=== PATIENT | female | born 1950 | race Caucasian/White ===

== ENCOUNTER 2019-09-18 20:34 | Emergency (ER) | payer MEDICAID, MEDICARE, OTHER ==
[~2019-09-18] VITALS: Ht 165.1 cm; Wt 130.7 kg
[~2019-09-18 20:34] MED LIST: ASPI-586 PO; INSU100I14 SQ; INSU100V5 SQ; IPRA4AER IH; LEVO100T7 PO; LISI40TA PO; LOVA10TA PO; RT-ALBUINH IH
[2019-09-18] MEDS ORDERED: INSU100I29 (22:01)
[2019-09-18] MEDS ORDERED: GLIP5TAB13 (22:01)
[2019-09-18] MEDS ORDERED: MONT10TA24 (22:01)
[2019-09-18] MEDS ORDERED: PATI8.4P (22:01)
[2019-09-18] MEDS ORDERED: FURO80TA3 (22:01)
[2019-09-18] MEDS ORDERED: RX-ALBUTEROL INHALER (PROAIR) 8.5 GM IH STA (22:18)
--- NOTE | 2019-09-18 22:28 | ED Cough/URI ---
General Chief Complaint: Cough/Cold/Flu Symptoms Stated Complaint: SOB,CONGESTED Nursing Triage Note: SOB CONGESTION AND SORE THROAT X3 DAYS Sepsis Screen: No Definite Risk History of Present Illness Date Seen by Provider: Sep 18, 2019 Time Seen by Provider: 21:50 Initial Comments 8-year-old female reports cough and congestion over the last 3 days. She has a history of CHF and diabetes. Her blood sugars have been running in the 180s and 90s. She is extremely active today running errands, denies any shortness of air or malaise. She has inhalers at home that she believes are ex pired. She has not tried to use them. Timing/Duration: intermittent Severity/Quality: productive cough (minimal clear to yellow) Prior Episodes/Possible Cause: occasional episodes Associated Symptoms: cough, nasal congestion, wheezing Allergies and Home Medications Allergies Coded Allergies: Sulfa (Sulfonamide Antibiotics) (Verified Allergy, Severe, BLOODY STOOLS, 12/08/15) ciprofloxacin (Verified Allergy, Severe, BLOODY STOOLS, 12/08/15) codeine (Verified Allergy, Severe, HALLUCINATIONS, 12/08/15) Home Medications Albuterol Sulfate 18 Gm Hfa.aer.ad, 1-2 PUFF IH PRN, (Reported) Albuterol/Ipratropium 4 Gm Aero, 2 PUFF IH Q4H, (Reported) Aspirin 81 Mg Tablet.dr, 81 MG PO DAILY, (Reported) Insulin Aspart 300 Units/3 Ml Solution, 300 UNITS SQ AC, (Reported) Insulin Determir 1,000 Units/10 Ml Soln, 74 UNITS SQ HS, (Reported) Levothyroxine Sodium 100 Mcg Tablet, 100 MCG PO DAILY, (Reported) Lisinopril 40 Mg Tablet, 80 MG PO BID, (Reported) Lovastatin 10 Mg Tablet, 10 MG PO HS, (Reported) Patient Home Medication List Home Medication List Reviewed: Yes Review of Systems Review of Systems Constitutional: see HPI, malaise Respiratory: see HPI, phlegm All Other Systems Reviewed Negative Unless Noted: Yes Past Tjfhpgj-Fumamo-Ejlokr Hx Past Med/Social Hx: Reviewed Nursing Past Med/Soc Hx Patient Social History Alcohol Use: Denies Use Recreational Drug Use: No Smoking Status: Never a Smoker Recent Foreign Travel: No Contact w/Someone Who Travel: No Recent Infectious Disease Expo: No Immunizations Up To Date Tetanus Booster (TDap): Unknown PED Vaccines UTD: Yes Date of Pneumonia Vaccine: Sep 12, 2013 Past Medical History Surgeries: Yes (D&C X'S 3) Respiratory: Yes (MILD SLEEP APNEA-CPAP) Asthma, Chronic Bronchitis, Sleep Apnea Cardiac: Yes Neurological: No Reproductive Disorders: Yes (FIBROID TUMORS) Female Reproductive Disorders: Denies Sexually Transmitted Disease: No HIV/AIDS: No Gastrointestinal: No Musculoskeletal: No Endocrine: Yes Loss of Vision: Bilateral Hearing Impairment: Denies Cancer: Yes Skin Psychosocial: No Integumentary: No Blood Disorders: No Adverse Reaction/Blood Tranf: No (HAS HAD BLOOD WITH NO PROBLEM) Physical Exam Vital Signs - First Documented 09/18/19 20:56 Temp 36.9 Pulse 76 Resp 20 B/P (MAP) 156/77 (103) Pulse Ox 97 O2 Delivery Room Air Capillary Refill : Less Than 3 Seconds Height: 5'5.00" Weight: 270lbs. 0.0oz. 122.656628qs; 47.00 BMI Method: General Appearance: WD/WN, no apparent distress HEENT: PERRL/EOMI, normal ENT inspection, TMs normal, pharynx normal (postnasal drainage) Respiratory: chest non-tender, lungs clear, normal breath sounds Cardiovascular: normal peripheral pulses, regular rate, rhythm Gastrointestinal: normal bowel sounds, non tender, soft Neurologic/Psychiatric: no motor/sensory deficits, alert, normal mood/affect, oriented x 3 Skin: normal color, warm/dry; No pallor, No rash Lymphatic: no adenopathy Progress/Results/Core Measures Suspected Sepsis Recent Fever Within 48 Hours: Yes Infection Criteria Present: Suspected New Infection New/Unexplained Altered Menta: No Sepsis Screen: No Definite Risk SIRS Temperature: Pulse: 76 Respiratory Rate: 20 Blood Pressure 156 /77 Mean: 103 Results/Orders Micro Results Microbiology 09/18/19 Influenza Types A,B Antigen (TAMMY) - Final, Complete My Orders Orders - VALERY WAGONER Rx-Albuterol Inhaler (Rx-Proair) (09/18/19 22:18) Vital Signs/I&O 09/18/19 09/18/19 20:56 22:54 Temp 36.9 36.9 Pulse 76 72 Resp 20 18 B/P (MAP) 156/77 (103) 149/75 (103) Pulse Ox 97 97 O2 Delivery Room Air Room Air Capillary Refill : Less Than 3 Seconds Blood Pressure Mean: 103 Diagnostic Imaging Diagonstic Imaging: Xray Plain Films/CT/US/NM/MRI: chest Comments No acute findings. Will be over read by radiology. Departure Impression Primary Impression: Viral upper respiratory infection Disposition: 01 HOME, SELF-CARE Condition: Improved Departure-Patient Inst. Decision time for Depature: 22:20 Referrals: BRODIE RAMIREZ DO (PCP) Primary Care Physician Patient Instructions: Viral Upper Respiratory Infection, Adult (DC) Add. Discharge Instructions: Take Mucinex one tablet twice daily with one glass of water. Alternate between Tylenol 650 mg and ibuprofen 600 mg every 4 hours for pain or fever. Follow-up with your primary care provider if your symptoms are not improving or worsen. Use the pro-air inhaler 2 puffs every 4 hours, waiting 5 minutes in between inhalation. Continue taking all of your normal home medications. Return to emergency department for new, urgent health care needs. All discharge instructions reviewed with patient and/or family. Voiced understanding. VALERY WAGONER Sep 18, 2019 22:28
[2019-09-18 22:54] VITALS: BP 149/75
--- NOTE | 2019-09-19 08:09 | Diagnostic Imaging Report ---
INDICATION: Cough and congestion for 3 days EXAMINATION: 2 view chest 09/18/2019 COMPARISON: None. FINDINGS: Heart is slightly prominent. Pulmonary vasculature appears congested with mild edema suspected. No infiltrates or effusions. No pneumothorax. IMPRESSION: 1. Suspected early pulmonary edema. Dictated by: Dictated on workstation # [id number]
== END 2019-09-18 22:55 | disposition home or self-care (01) ==
LOC: EDUNIT# 20:34 → ER 20:35
DX: J06.9 Acute upper respiratory infection, unspecified (principal); I50.9 Heart failure, unspecified; E11.9 Type 2 diabetes mellitus without complications; J44.9 Chronic obstructive pulmonary disease, unspecified; Z88.2 Allergy status to sulfonamides; Z88.1 Allergy status to other antibiotic agents; Z88.5 Allergy status to narcotic agent; Z79.82 Long term (current) use of aspirin; Z79.4 Long term (current) use of insulin; Z86.018 Personal history of other benign neoplasm; Z85.828 Personal history of other malignant neoplasm of skin
CPT/HCPCS: 71046; 87804; 94640; 94664

== ENCOUNTER 2019-10-20 21:20 | Emergency (ER) | payer MEDICARE, OTHER ==
[~2019-10-20] VITALS: Ht 165.1 cm; Wt 123.8 kg
[~2019-10-20 21:20] MED LIST changes: +FURO80TA3; +GLIP5TAB13; +INSU100I29; +MONT10TA24; +PATI8.4P
[2019-10-20] MEDS ORDERED: RT-ALBUTEROL/IPRATROPIUM 3 ML (DUONEB) VIAL INH ONE (21:45)
--- NOTE | 2019-10-20 22:37 | ED Respiratory ---
General Chief Complaint: Respiratory Problems Stated Complaint: COPD,SOB,COUGH UP DARK MUCOUS Nursing Triage Note: C/O SOB, STARTING 3 DAYS AGO, DENIES FEVER BUT C/O VERY THICK SPUTUM SHE IS UNABLE TO COUGH UP, AND WHEN SHE DOES IT IS BROWNISH YELLOW. Source: patient Exam Limitations: no limitations History of Present Illness Date Seen by Provider: Oct 20, 2019 Time Seen by Provider: 21:45 Initial Comments Here with report of cough over the last few days. Denies fevers. Does have history of COPD and has had significant pneumonia in the past. She lives alone tomorrow but was over here visiting her daughter so decided to check into this emergency department. She is worried because of her history of pneumonia. Initially stated she is having difficulty breathing out of her right lung but later stated it was her left lung. Has been using albuterol MDI but has not used her nebulizer. She is unsure of her nebulizer medicine is still within date. Denies nausea or vomiting. Had similar episode about 4 weeks ago that resolved. Timing/Duration: getting worse, other (3 days) Severity: mild Prior Episodes/Possible Cause: occasional episodes Modifying Factors: Improves With Albuterol Inhaler; Worse With Coughing Associated Symptoms: cough; No fever/chills, No muscle aches; nasal congestion, shortness of breath Allergies and Home Medications Allergies Coded Allergies: Sulfa (Sulfonamide Antibiotics) (Verified Allergy, Severe, BLOODY STOOLS, 10/20/19) ciprofloxacin (Verified Allergy, Severe, BLOODY STOOLS, 10/20/19) codeine (Verified Allergy, Severe, HALLUCINATIONS, 10/20/19) Home Medications Albuterol Sulfate 18 Gm Hfa.aer.ad, 1-2 PUFF IH PRN, (Reported) Albuterol/Ipratropium 4 Gm Aero, 2 PUFF IH Q4H, (Reported) Aspirin 81 Mg Tablet.dr, 81 MG PO DAILY, (Reported) Insulin Aspart 300 Units/3 Ml Solution, 300 UNITS SQ AC, (Reported) Insulin Determir 1,000 Units/10 Ml Soln, 74 UNITS SQ HS, (Reported) Levothyroxine Sodium 100 Mcg Tablet, 100 MCG PO DAILY, (Reported) Lisinopril 40 Mg Tablet, 80 MG PO BID, (Reported) Lovastatin 10 Mg Tablet, 10 MG PO HS, (Reported) Patient Home Medication List Home Medication List Reviewed: Yes Review of Systems Review of Systems Constitutional: see HPI; No chills, No fever Respiratory: cough, short of breath; No wheezing Cardiovascular: No chest pain, No palpitations Gastrointestinal: No abdominal pain, No nausea, No vomiting Musculoskeletal: no symptoms reported Past Lbkqgki-Vlsylq-Vpubjz Hx Past Med/Social Hx: Reviewed Nursing Past Med/Soc Hx Patient Social History Alcohol Use: Denies Use Recreational Drug Use: No Recent Foreign Travel: No Contact w/Someone Who Travel: No Recent Infectious Disease Expo: No Recent Hopitalizations: No Physical Abuse: No Sexual Abuse: No Mistreated: No Fear: No Immunizations Up To Date Tetanus Booster (TDap): Unknown PED Vaccines UTD: Yes Date of Pneumonia Vaccine: Sep 12, 2013 Date of Influenza Vaccine: Jul 13, 2019 Past Medical History Surgeries: Yes (D&C X'S 3) Respiratory: Yes (MILD SLEEP APNEA-CPAP) Asthma, Pneumonia, Chronic Bronchitis, Sleep Apnea Currently Using CPAP: No Currently Using BIPAP: No Cardiac: Yes ("HEART FAILURE") Hypertension Neurological: No : No Reproductive Disorders: Yes (FIBROID TUMORS) Female Reproductive Disorders: Denies 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 Sexually Transmitted Disease: No HIV/AIDS: No Gastrointestinal: No ("I TAKE MEDICINE FOR LIVER DISEASE" UNABLE TO CONFIRM EXACTLY WHAT IS WRONG) Musculoskeletal: No Endocrine: Yes (ORAL MEDS DURING DAY AND LANTUS AT NIGHT) Are Your Blood Sugars Over 250: No HEENT: No Loss of Vision: Bilateral Hearing Impairment: Denies Cancer: Yes Skin Psychosocial: No Integumentary: No Blood Disorders: No Adverse Reaction/Blood Tranf: No (HAS HAD BLOOD WITH NO PROBLEM) Family Medical History Reviewed Nursing Family Hx Physical Exam Vital Signs - First Documented 10/20/19 21:33 Temp 36.9 Pulse 76 Resp 20 B/P (MAP) 177/65 (102) Pulse Ox 97 O2 Delivery Room Air Capillary Refill : Less Than 3 Seconds Height: 5'5.00" Weight: 270lbs. 0.0oz. 122.579655eb; 45.00 BMI Method: General Appearance: WD/WN, no apparent distress HEENT: PERRL/EOMI, TMs normal, pharynx normal, other (bilateral clear rhin orrhea and mild erythema) Neck: full range of motion, supple Respiratory: lungs clear, normal breath sounds Cardiovascular: regular rate, rhythm, no murmur Neurologic/Psychiatric: alert, oriented x 3 Skin: normal color, warm/dry Progress/Results/Core Measures Suspected Sepsis Recent Fever Within 48 Hours: No Infection Criteria Present: None New/Unexplained Altered Menta: No Sepsis Screen: No Definite Risk SIRS Temperature: Pulse: 76 Respiratory Rate: 20 Blood Pressure 177 /65 Mean: 102 Results/Orders Micro Results Microbiology 10/20/19 Influenza Types A,B Antigen (TAMMY) - Final, Complete My Orders Orders - SHARON NICOLE MD Albuterol/Ipra Inhalation Soln (Duoneb I (10/20/19 21:45) Chest Pa/Lat (2 View) (10/20/19 21:44) Svn Small Volume Nebulizer (10/20/19 21:44) Sputum Culture (10/20/19 21:44) Influenza A And B Antigens (10/20/19 21:57) Azithromycin Tablet (Zithromax Tablet) (10/20/19 23:30) Medications Given in ED Current Medications Medications Dose Ordered Sig/Maximino Route Start Time Stop Time Status Last Admin Dose Admin Albuterol/ Ipratropium 3 ml ONCE ONCE INH 10/20/19 21:45 10/20/19 21:46 DC 10/20/19 22:02 3 ML Vital Signs/I&O 10/20/19 10/20/19 21:33 22:05 Temp 36.9 Pulse 76 Resp 20 B/P (MAP) 177/65 (102) Pulse Ox 97 96 O2 Delivery Room Air Room Air Capillary Refill : Less Than 3 Seconds Blood Pressure Mean: 102 Progress Note : Progress Note Seen and evaluated. Desean ayon ordered to see if that will help clear her for cough. Two-view chest x-ray ordered. Vital signs and O2 saturations reassuring. Patient is not requiring oxygen and is 97% on room air. Normal heart rate. 2229: Desean ayon did not make much difference but she is still clear breath sounds bilateral. Chest x-ray pending. Monitor patient. 2330: Workup negative. Overall she is doing fine with still reassuring vital signs. We will go ahead and initiate azithromycin 5 day pack with 500 mg by mouth now continue the rest outpatient. I will give her the name of Dr. Rdz so she has a professional organizer that she can make follow-up appointment with. Discharged home with return precautions. Patient verbalize understanding instructions and agreement with plan. Diagnostic Imaging Diagonstic Imaging: Xray Plain Films/CT/US/NM/MRI: chest Comments No acute findings Reviewed: Reviewed by Me Departure Impression Primary Impression: Acute bronchitis Qualified Codes: J20.9 - Acute bronchitis, unspecified Disposition: 01 HOME, SELF-CARE Condition: Stable Departure-Patient Inst. Decision time for Depature: 23:33 Referrals: SHAHRIAR RDZ THOMAS A MD (PCP) Primary Care Physician Patient Instructions: Acute Bronchitis, Adult (DC) Add. Discharge Instructions: All discharge instructions reviewed with patient and/or family. Voiced understanding. Take medications as directed. Use albuterol nebulizer treatments every 4-6 hours as needed. Drink plenty of fluids. Follow-up with the professional organizer listed or of your choosing. Call his office for appointment. Return for worse pain, fever, vomiting, weakness, breathing problems or other concerns as needed. Scripts Azithromycin (Azithromycin) 250 Mg Tablet 250 MG PO DAILY, #4 TAB 0 Refills Prov: SHARON NICOLE MD 10/20/19 Albuterol Sulfate (Albuterol Sulfate) 2.5 Mg/3 Ml Vial.neb 2.5 MG INH Q4H PRN for WHEEZING, #50 EA 1 Refill Prov: SHARON NICOLE MD 10/20/19 SHARON NICOLE MD Oct 20, 2019 22:37
[2019-10-20] MEDS ORDERED: AZITHROMYCIN 250 MG TAB (ZITHROMAX) PO STA (23:30)
[2019-10-20] MEDS ORDERED: AZIT250T12 PO (23:34)
[2019-10-20] MEDS ORDERED: ALBU2.5V4 INH (23:34)
[2019-10-20 23:41] VITALS: BP 130/62
--- NOTE | 2019-10-21 07:24 | Diagnostic Imaging Report ---
INDICATION: COPD. COMPARISON: 09/18/2019. FINDINGS: The heart size, mediastinal configuration, and pulmonary vascularity are within normal limits. There is no pleural effusion, pneumothorax, or pneumonia. The osseous structures are unremarkable. IMPRESSION: No acute cardiopulmonary abnormality. Dictated by: Dictated on workstation # [id number]
== END 2019-10-20 23:46 | disposition home or self-care (01) ==
LOC: EDUNIT# 21:20 → ER 21:22
DX: J20.9 Acute bronchitis, unspecified (principal); J44.0 Chronic obstructive pulmonary disease with (acute) lower respiratory infection; I10 Essential (primary) hypertension; Z85.828 Personal history of other malignant neoplasm of skin; Z88.2 Allergy status to sulfonamides; Z88.1 Allergy status to other antibiotic agents; Z88.5 Allergy status to narcotic agent; Z79.4 Long term (current) use of insulin; Z79.82 Long term (current) use of aspirin
CPT/HCPCS: 71046; 87070; 87077; 87186; 87205; 87804; 94640

== ENCOUNTER 2022-10-12 13:47 | Emergency (ER) | payer BC, MEDICARE ==
[~2022-10-12] VITALS: Ht 165 cm; Wt 113.0 kg
[~2022-10-12 13:47] MED LIST changes: +ALBU2.5V4 INH; +AZIT250T12 PO; -LISI40TA PO; +LISI40TA9 PO; +MONT-40; -MONT10TA24
[2022-10-12] MEDS ORDERED: RT-ALBUTEROL/IPRATROPIUM 3 ML (DUONEB) VIAL INH ONE (14:30)
[2022-10-12] MEDS ORDERED: methylPREDNISolone 125 MG (Solu-MEDROL) VIAL IVP ONE (14:30)
[2022-10-12 14:33] LABS: BASOPHILS % (AUTO) 1 % (0-10); EOSINOPHILS # (AUTO) 0.1 10^3/uL (0.0-0.3); EOSINOPHILS % (AUTO) 2 % (0-10); HEMATOCRIT 35 % (35-52); HEMOGLOBIN 11.1 g/dL (11.5-16.0); LYMPHOCYTES # (AUTO) 1.3 10^3/uL (1.0-4.0); LYMPHOCYTES % (AUTO) 26 % (12-44); MEAN CORPUSCULAR HEMOGLOBIN 30 pg (25-34); MEAN CORPUSCULAR HGB CONC 31 g/dL (32-36); MEAN CORPUSCULAR VOLUME 94 fL (80-99); MEAN PLATELET VOLUME 10.9 fL (9.0-12.2); MONOCYTES # (AUTO) 0.5 10^3/uL (0.0-1.0); MONOCYTES % (AUTO) 10 % (0-12); NEUTROPHILS # (AUTO) 3.2 10^3/uL (1.8-7.8); NEUTROPHILS % (AUTO) 62 % (42-75); PLATELET COUNT 140 10^3/uL (130-400); WHITE BLOOD COUNT 5.3 10^3/uL (4.3-11.0)
--- NOTE | 2022-10-12 14:35 | ED Respiratory ---
General Chief Complaint: Cough/Cold/Flu Symptoms Stated Complaint: CHEST CONGESTION | DIALYSIS PT Nursing Triage Note: PT STATES CONGESTION/COUGH FOR A FEW DAYS, DIALYSIS STARTED A FEW WEEKS AGO, HAD DIALYSIS YESTERDAY, 99% ON ROOM AIR, NEG COVID TEST TUESDAY, COUGH HAS BEEN GOING THROUGH HER HOUSE, HAD A PRODUCTIVE COUGH AND NOW DRY COUGH, HX OF PNEUMONIA AND ALMOST FROM IT IN 1990 Source: patient, family Exam Limitations: no limitations History of Present Illness Date Seen by Provider: Oct 12, 2022 Time Seen by Provider: 14:05 Initial Comments 71-year-old female was sent here from the [facility] walk-in clinic for concerns of wheezing and shortness of breath when laying down starting last night. Patient reports she has also been coughing up yellow-brownish sputum. Patient states that a viral upper respiratory illness has been going through her family. States she started having sneezing on Tuesday, and then her symptoms developed into wheezing last night when lying down. Patient states she is feels fine when she sits up. She denies fever/chills, chest pain, abdominal pain, nausea/vomiting. She has a history of COPD, asthma, diabetes, HTN, and is on dialysis. She last had hemodialysis yesterday. States she has been using her albuterol and Advair inhaler, but has not used her nebulizer. Denies history of CHF, states she recently had an echo and was not told that it was abnormal. She has 1+ pitting edema in regino lower legs, but she states that swelling is acutally improved. She recently moved to [place] to be closer to dialysis. She is trying to establish a primary care here but has been unsuccessful due to lack of available appointments. She was going to go see her previous primary today, but could not due to lack of transportation. Patient's family member was able to provide a list of medications. Allergies and Home Medications Allergies Coded Allergies: Sulfa (Sulfonamide Antibiotics) (Verified Allergy, Severe, BLOODY STOOLS, 10/20/19) ciprofloxacin (Verified Allergy, Severe, BLOODY STOOLS, 10/20/19) codeine (Verified Allergy, Severe, HALLUCINATIONS, 10/20/19) Patient Home Medication List Home Medication List Reviewed: Yes Albuterol Sulfate (Ventolin Hfa) 18 Gm Hfa.aer.ad, 1-2 PUFF IH PRN, (Reported) Entered as Reported by: TYRA CHING on 12/08/15 1130 Albuterol Sulfate (Albuterol Sulfate) 2.5 Mg/3 Ml Vial.neb, 2.5 MG INH Q4H PRN for WHEEZING Prescribed by: SHARON NICOLE on 10/20/192333 Albuterol/Ipratropium (Combivent Respimat Inhal [place]) 4 Gm Aero, 2 PUFF IH Q4H, (Reported) Entered as Reported by: TYRA CHING on 12/08/15 113 Amoxicillin/Potassium Clav (Amox Tr-K Clv 250-125 mg Tab) 250 Mg-125 Mg Tablet, 1 EACH PO BID Prescribed by: Mary Borrego on 10/12/22 154 Aspirin (Aspir 81) 81 Mg Tablet.dr, 81 MG PO DAILY, (Reported) Entered as Reported by: TYRA CHING on 12/08/15 112 Azithromycin (Azithromycin) 250 Mg Tablet, 250 MG PO DAILY Prescribed by: SHARON NICOLE on 10/20/192333 Doxycycline Hyclate (Doxycycline Hyclate) 100 Mg Tablet, 100 MG PO BID Prescribed by: Mary Borrego on 10/12/22 154 Furosemide (Furosemide) 80 Mg Tablet, (Reported) Entered as Reported by: YUNIOR MAHER on 09/18/192200 Glipizide (Glipizide) 5 Mg Tablet, (Reported) Entered as Reported by: YUNIOR MAHER on 09/18/192200 Insulin Aspart (Novolog Flexpen) 300 Units/3 Ml Solution, 300 UNITS SQ AC, (Reported) Entered as Reported by: TYRA CHING on 12/08/151127 Insulin Detemir (Levemir Flextouch) 100 Unit/1 Ml Insuln.pen, (Reported) Entered as Reported by: YUNIOR MAHER on 09/18/192200 Insulin Determir (Levemir) 1,000 Units/10 Ml Soln, 74 UNITS SQ HS, (Reported) Entered as Reported by: TYRA CHING on 12/08/15 112 Levothyroxine Sodium (Levothyroxine Sodium) 100 Mcg Tablet, 100 MCG PO DAILY, (Reported) Entered as Reported by: TYRA CHING on 12/08/15 1128 Lisinopril (Lisinopril) 40 Mg Tablet, 80 MG PO BID, (Reported) Entered as Reported by: TYRA CHING on 12/08/15 112 Lovastatin (Lovastatin) 10 Mg Tablet, 10 MG PO HS, (Reported) Entered as Reported by: TYRA CHING on 12/08/15 112 Montelukast Sodium (Montelukast Sodium) 10 Mg Tablet, (Reported) Entered as Reported by: YUNIOR MAHER on 09/18/192200 Patiromer Calcium Sorbitex (Veltassa) 8.4 Gm Powd.pack, (Reported) Entered as Reported by: YUNIOR MAHER on 09/18/192200 Prednisone (Prednisone) 50 Mg Tab, 50 MG PO DAILY Prescribed by: Mary Borrego on 10/12/22 1541 Review of Systems Review of Systems Constitutional: see HPI Past Lzuovwt-Hmziqa-Kwhttq Hx Patient Social History Tobacco Use?: No Substance use?: No Alcohol Use?: No Immunizations Up To Date Tetanus Booster (TDap): Unknown PED Vaccines UTD: Yes Past Medical History Surgery/Hospitalization HX: COPD, ASTHMA, DIALYSIS, GALLBLADDER Surgeries: Yes (D&C X'S 3) Respiratory: Yes (MILD SLEEP APNEA-CPAP) Asthma, Pneumonia, Chronic Bronchitis, Sleep Apnea Currently Using CPAP: No Currently Using BIPAP: No Cardiac: Yes ("HEART FAILURE") Hypertension Neurological: No Reproductive Disorders: Yes (FIBROID TUMORS) Female 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 Sexually Transmitted Disease: No HIV/AIDS: No Gastrointestinal: No ("I TAKE MEDICINE FOR LIVER DISEASE" UNABLE TO CONFIRM EXACTLY WHAT IS WRONG) Musculoskeletal: No Endocrine: Yes (ORAL MEDS DURING DAY AND LANTUS AT NIGHT) HEENT: No Loss of Vision: Bilateral Hearing Impairment: Denies Cancer: Yes Skin Psychosocial: No Integumentary: No Blood Disorders: No Adverse Reaction/Blood Tranf: No (HAS HAD BLOOD WITH NO PROBLEM) Physical Exam Vital Signs - First Documented 10/12/22 14:00 Temp 35.6 Pulse 74 Resp 20 B/P (MAP) 179/76 (110) Pulse Ox 99 O2 Delivery Room Air Capillary Refill : Less Than 3 Seconds Height: 5'5.00" Weight: 270lbs. 0.0oz. 122.700158hr; 41.00 BMI Method: General Appearance: WD/WN, no apparent distress Neck: supple, normal inspection Respiratory: lungs clear, normal breath sounds, no respiratory distress, no accessory muscle use Cardiovascular: regular rate, rhythm, no edema, no JVD, no murmur, gallop/S3 Extremities: non-tender, pedal edema (2+) Neurologic/Psychiatric: alert, normal mood/affect, oriented x 3 Skin: normal color, warm/dry Progress/Results/Core Measures Suspected Sepsis SIRS Temperature: Pulse: 74 Respiratory Rate: 20 Laboratory Tests 10/12/22 14:22: White Blood Count 5.3 Blood Pressure 179 /76 Mean: 110 Laboratory Tests 10/12/22 14:22: Creatinine 2.19H, Platelet Count 140, Total Bilirubin 0.4 Results/Orders Lab Results Laboratory Tests Test 10/12/22 14:00 10/12/22 14:22 Range/Units Influenza Type A (RT-PCR) Not Detected Not Detecte Influenza Type B (RT-PCR) Not Detected Not Detecte SARS-CoV-2 RNA (RT-PCR) Not Detected Not Detecte White Blood Count 5.3 4.3-11.0 10^3/uL Red Blood Count 3.75 L 3.80-5.11 10^6/uL Hemoglobin 11.1 L 11.5-16.0 g/dL Hematocrit 35 35-52 % Mean Corpuscular Volume 94 80-99 fL Mean Corpuscular Hemoglobin 30 25-34 pg Mean Corpuscular Hemoglobin Concent 31 L 32-36 g/dL Red Cell Distribution Width 17.8 H 10.0-14.5 % Platelet Count 140 130-400 10^3/uL Mean Platelet Volume 10.9 9.0-12.2 fL Immature Granulocyte % (Auto) 0 % Neutrophils (%) (Auto) 62 42-75 % Lymphocytes (%) (Auto) 26 12-44 % Monocytes (%) (Auto) 10 0-12 % Eosinophils (%) (Auto) 2 0-10 % Basophils (%) (Auto) 1 0-10 % Neutrophils # (Auto) 3.2 1.8-7.8 10^3/uL Lymphocytes # (Auto) 1.3 1.0-4.0 10^3/uL Monocytes # (Auto) 0.5 0.0-1.0 10^3/uL Eosinophils # (Auto) 0.1 0.0-0.3 10^3/uL Basophils # (Auto) 0.0 0.0-0.1 10^3/uL Immature Granulocyte # (Auto) 0.0 0.0-0.1 10^3/uL Sodium Level 135 135-145 MMOL/L Potassium Level 4.5 3.6-5.0 MMOL/L Chloride Level 100 98-107 MMOL/L Carbon Dioxide Level 26 21-32 MMOL/L Anion Gap 9 5-14 MMOL/L Blood Urea Nitrogen 15 7-18 MG/DL Creatinine 2.19 H 0.60-1.30 MG/DL Estimat Glomerular Filtration Rate 24 BUN/Creatinine Ratio 7 Glucose Level 254 H 70-105 MG/DL Calcium Level 9.2 8.5-10.1 MG/DL Corrected Calcium 9.8 8.5-10.1 MG/DL Total Bilirubin 0.4 0.1-1.0 MG/DL Aspartate Amino Transf (AST/SGOT) 22 5-34 U/L Alanine Aminotransferase (ALT/SGPT) 30 0-55 U/L Alkaline Phosphatase 151 H 40-136 U/L B-Type Natriuretic Peptide 195.6 H <100.0 PG/ML Total Protein 8.3 H 6.4-8.2 GM/DL Albumin 3.2 3.2-4.5 GM/DL My Orders Orders - MARY BORREGO APRN Covid 19 Inhouse Test (10/12/22 14:03) Influenza A And B By Pcr (10/12/22 14:03) Cbc With Automated Diff (10/12/22 14:03) Comprehensive Metabolic Panel (10/12/22 14:03) Bnp [place] (10/12/22 14:03) Ekg Tracing (10/12/22 14:03) O2 (10/12/22 14:03) Ed Iv/Invasive Line Start (10/12/22 14:03) Monitor-Rhythm Ecg Trace Only (10/12/22 14:03) Chest 1 View, Ap/Pa Only (10/12/22 14:03) Methylprednisolone Sod Succ (Solu-Medrol (10/12/22 14:30) Albuterol/Ipra Inhalation Soln (Duoneb I (10/12/22 14:30) Svn Small Volume Nebulizer (10/12/22 14:17) Medications Given in ED Vital Signs/I&O 10/12/22 10/12/22 14:00 15:58 Temp 35.6 35.6 Pulse 74 71 Resp 20 20 B/P (MAP) 179/76 (110) 184/83 Pulse Ox 99 99 O2 Delivery Room Air Room Air Capillary Refill : Less Than 3 Seconds Blood Pressure Mean: 110 Progress Note #1: Time: 14:36 Progress Note Patient seen and evaluated, sitting comfortably on bed, no acute distress. Based on exam and symptoms, differential diagnosis includes but is not limited to pneumonia, COPD exacerbation, flu/COVID, CHF. Work-up initiated including CBC, CMP, BNP, chest x-ray, EKG. Solu-Medrol and DuoNeb ordered. EKG shows left bundle branch block. Patient states she did not know that she had a bundle branch block. States she used to see a phlebotomy specialist, but stopped because she was told she did not have any heart issues. No previous EKG on file. Patient was able to lie almost flat during EKG, patient said that she felt fine during this. Progress Note #2: Time: 14:56 Progress Note Chest x-ray reviewed, possible infiltrates noted in lower lobes. We will go ahead and treat for pneumonia. No evidence of pulmonary congestion or fluid overload. Labs reviewed. CBC shows slightly decreased RBCs at 3.75, slightly decreased hemoglobin 11.1. CMP shows creatinine 2.19, GFR 24, glucose 254. Flu and COVID negative. Waiting for result of BNP. Progress Note #3: Time: 15:26 Progress Note BNP 195. Not concern for fluid overload. Will discharge patient with treatment for pneumonia and COPD exacerbation. Curb 65 score 1, low risk. ECG Initial ECG Impression Date: Oct 12, 2022 Initial ECG Impression Time: 14:12 Initial ECG Rate: 68 Initial ECG Rhythm: Normal Sinus Initial ECG Intervals: QRS Initial ECG Intervals Widened QRS due to left bundle branch block Initial ECG Comparisson: No Previous ECG Available Diagnostic Imaging Diagonstic Imaging: Xray Plain Films/CT/US/NM/MRI: chest Comments [facility] [place], [place] NAME: EZ DE LOS SANTOS [facility] REC#: [id number] PT STATUS: REG ER : 1950 PHYSICIAN: MARY BORREGO APRN ADMIT DATE: 10/12/22/ER Draft Date of Exam:10/12/22 CHEST 1 VIEW, AP/PA ONLY CLINICAL INDICATION: Patient with congestion/cough for a few days. Dialysis started a few weeks ago. Patient had dialysis yesterday. EXAM: Portable chest x-ray, upright view. COMPARISON: Chest x-ray dated 10/20/2019. FINDINGS: There is interval placement of a vascular access catheter overlying the right side of the chest with the distal portion overlying the cavoatrial junction region in good position. There are mild airspace opacities involving both lung bases which may represent atelectasis versus subtle infiltrates. Otherwise, the lungs are clear. The pulmonary vasculature is within normal limits. The cardiac silhouette is within normal limits. There are degenerative spurs involving the thoracic spine. IMPRESSION: 1: There is mild bibasilar atelectasis but subtle superimposed infiltrates cannot be completely excluded. 2: There is no evidence of significant pulmonary congestion or fluid overload. Dictated on workstation # [id number] Dict: 10/12/22 1443 Trans: 10/12/22 1449 [id number] Interpreted by: RENE ARVIZU MD Electronically signed by: Departure Impression Primary Impression: Pneumonia Additional Impression: COPD exacerbation Disposition: 01 HOME, SELF-CARE Condition: Stable Departure-Patient Inst. Decision time for Depature: 15:26 Referrals: BETTY SKELTON APRN (PCP) Primary Care Physician [facility] [place] [facility] (Family) Primary Care Physician RICKY MILLIGAN MD Patient Instructions: Exacerbation of COPD (DC), Community-Acquired Pneumonia in Adults Add. Discharge Instructions: Take full course of antibiotics as prescribed, complete even if you begin to feel better. Take prednisone as prescribed. Use your inhalers and nebulizers as needed for trouble breathing. Follow-up with primary care provider, preferably before you finish your antibiotic. You may call the main hospital number at [phone] and asked to establish with the first available primary care provider or nurse practitioner. You may also try [facility] at [phone]. Please also schedule appointment with cardiology at [phone]. Return if you have worsening shortness of breath, chest pain, headache, lightheadedness, fever, or any other new, concerning, or worsening symptoms. All discharge instructions reviewed with patient and/or family. Voiced understanding. Scripts Prednisone (Prednisone) 50 Mg Tab 50 MG PO DAILY for 5 Days, #5 TAB Prov: MARY BORREGO APRN 10/12/22 Doxycycline Hyclate (Doxycycline Hyclate) 100 Mg Tablet 100 MG PO BID for 7 Days, #14 TAB 0 Refills Prov: MARY BORREGO APRN 10/12/22 Amoxicillin/Potassium Clav (Amox Tr-K Clv 250-125 mg Tab) 250 Mg-125 Mg Tablet 1 EACH PO BID for 7 Days, #14 TAB 0 Refills Prov: MARY BORREGO APRN 10/12/22 MARY BORREGO APRN Oct 12, 2022 14:35
[2022-10-12 14:45] LABS: ALBUMIN 3.2 GM/DL (3.2-4.5); POTASSIUM 4.5 MMOL/L (3.6-5.0)
[2022-10-12 14:46] LABS: CALCIUM 9.2 MG/DL (8.5-10.1)
[2022-10-12 14:47] LABS: TOTAL PROTEIN 8.3 GM/DL (6.4-8.2)
[2022-10-12 14:49] LABS: BILIRUBIN,TOTAL 0.4 MG/DL (0.1-1.0)
--- NOTE | 2022-10-12 14:50 | Diagnostic Imaging Report ---
CLINICAL INDICATION: Patient with congestion/cough for a few days. Dialysis started a few weeks ago. Patient had dialysis yesterday. EXAM: Portable chest x-ray, upright view. COMPARISON: Chest x-ray dated 10/20/2019. FINDINGS: There is interval placement of a vascular access catheter overlying the right side of the chest with the distal portion overlying the cavoatrial junction region in good position. There are mild airspace opacities involving both lung bases which may represent atelectasis versus subtle infiltrates. Otherwise, the lungs are clear. The pulmonary vasculature is within normal limits. The cardiac silhouette is within normal limits. There are degenerative spurs involving the thoracic spine. IMPRESSION: 1: There is mild bibasilar atelectasis but subtle superimposed infiltrates cannot be completely excluded. 2: There is no evidence of significant pulmonary congestion or fluid overload. Dictated by: Dictated on workstation # [id number]
[2022-10-12 14:51] LABS: CREATININE SERUM 2.19 MG/DL (0.60-1.30)
[2022-10-12] MEDS ORDERED: DOXY100T2 PO (15:41)
[2022-10-12] MEDS ORDERED: AMOX1TAB PO (15:41)
[2022-10-12] MEDS ORDERED: PRD50T PO (15:41)
[2022-10-12 15:58] VITALS: BP 184/83
== END 2022-10-12 15:58 | disposition home or self-care (01) ==
LOC: EDUNIT# 13:47 → ER 13:52
DX: J18.9 Pneumonia, unspecified organism (principal); J44.1 Chronic obstructive pulmonary disease with (acute) exacerbation; I44.7 Left bundle-branch block, unspecified; G47.30 Sleep apnea, unspecified; Z88.0 Allergy status to penicillin; Z20.822 Contact with and (suspected) exposure to COVID-19; Z99.2 Dependence on renal dialysis; Z99.89 Dependence on other enabling machines and devices
CPT/HCPCS: 36415; 71045; 80053; 83880; 85025; 87636; 93005; 93041

== ENCOUNTER 2022-10-17 16:32 | Emergency (ER) | payer MEDICARE ==
[~2022-10-17] VITALS: Ht 163 cm; Wt 109.0 kg
[~2022-10-17 16:32] MED LIST changes: +AMOX1TAB PO; +DOXY100T2 PO; +PRD50T PO
[2022-10-17 17:23] VITALS: BP 182/84
[2022-10-17] MEDS ORDERED: RT-ALBUTEROL/IPRATROPIUM 3 ML (DUONEB) VIAL INH ONE (18:00)
--- NOTE | 2022-10-17 18:32 | Diagnostic Imaging Report ---
HISTORY: Shortness of breath. COMPARISON: 10/12/2022. TECHNIQUE: Frontal view of the chest. FINDINGS: Lung volumes are mildly large. There is mild cardiomegaly and mild central vascular congestion. No airspace consolidation is seen. There is no pleural effusion or pneumothorax. The right dialysis catheter tip projects over the low SVC. IMPRESSION: Mild cardiomegaly with mild central vascular congestion. Dictated by: Dictated on workstation # [id number]
[2022-10-17] MEDS ORDERED: IPRA3AMP31 IH (19:10)
[2022-10-17] MEDS ORDERED: LORA-877 PO (19:10)
--- NOTE | 2022-10-17 19:11 | ED Respiratory ---
General Chief Complaint: Respiratory Problems Stated Complaint: COUGH/SOA Nursing Triage Note: Patient ambulatory to ER w c/o cough and soa. Patient was just in this ER last or Tuesday. She finished all the medication that was prescribed for suspected pneumonia and felt better. In Tuesday patient was in dialysis and was told by her nurse she was coughing a lot and probably needed to be checked out. Source: patient Exam Limitations: no limitations History of Present Illness Date Seen by Provider: Oct 17, 2022 Time Seen by Provider: 17:35 Initial Comments 71-year-old female presents with Allergies and Home Medications Allergies Coded Allergies: Sulfa (Sulfonamide Antibiotics) (Verified Allergy, Severe, BLOODY STOOLS, 10/20/19) ciprofloxacin (Verified Allergy, Severe, BLOODY STOOLS, 10/20/19) codeine (Verified Allergy, Severe, HALLUCINATIONS, 10/20/19) Patient Home Medication List Albuterol Sulfate (Ventolin Hfa) 18 Gm Hfa.aer.ad, 1-2 PUFF IH PRN, (Reported) Entered as Reported by: TYRA CHING on 12/08/15 1130 Albuterol Sulfate (Albuterol Sulfate) 2.5 Mg/3 Ml Vial.neb, 2.5 MG INH Q4H PRN for WHEEZING Prescribed by: SHARON NICOLE on 10/20/19 2334 Albuterol/Ipratropium (Combivent Respimat Inhal [place]) 4 Gm Aero, 2 PUFF IH Q4H, (Reported) Entered as Reported by: TYRA CHING on 12/08/15 1130 Amoxicillin/Potassium Clav (Amox Tr-K Clv 250-125 mg Tab) 250 Mg-125 Mg Tablet, 1 EACH PO BID Prescribed by: Mary Borrego on 10/12/22 1541 Aspirin (Aspir 81) 81 Mg Tablet.dr, 81 MG PO DAILY, (Reported) Entered as Reported by: TYRA CHING on 12/08/15 1128 Azithromycin (Azithromycin) 250 Mg Tablet, 250 MG PO DAILY Prescribed by: SHARON NICOLE on 10/20/19 2334 Doxycycline Hyclate (Doxycycline Hyclate) 100 Mg Tablet, 100 MG PO BID Prescribed by: Mary Borrego on 1/31/23 1541 Furosemide (Furosemide) 80 Mg Tablet, (Reported) Entered as Reported by: YUNIOR MAHER on 09/18/192200 Glipizide (Glipizide) 5 Mg Tablet, (Reported) Entered as Reported by: YUNIOR MAHER on 09/18/192200 Insulin Aspart (Novolog Flexpen) 300 Units/3 Ml Solution, 300 UNITS SQ AC, (Reported) Entered as Reported by: TYRA CHING on 12/08/151127 Insulin Detemir (Levemir Flextouch) 100 Unit/1 Ml Insuln.pen, (Reported) Entered as Reported by: YUNIOR MAHER on 09/18/192200 Insulin Determir (Levemir) 1,000 Units/10 Ml Soln, 74 UNITS SQ HS, (Reported) Entered as Reported by: TYRA CHING on 12/08/151127 Levothyroxine Sodium (Levothyroxine Sodium) 100 Mcg Tablet, 100 MCG PO DAILY, (Reported) Entered as Reported by: TYRA CHING on 12/08/151127 Lisinopril (Lisinopril) 40 Mg Tablet, 80 MG PO BID, (Reported) Entered as Reported by: TYRA CHING on 12/08/151127 Lovastatin (Lovastatin) 10 Mg Tablet, 10 MG PO HS, (Reported) Entered as Reported by: TYRA CHING on 12/08/151127 Montelukast Sodium (Montelukast Sodium) 10 Mg Tablet, (Reported) Entered as Reported by: YUNIOR MAHER on 09/18/192200 Patiromer Calcium Sorbitex (Veltassa) 8.4 Gm Powd.pack, (Reported) Entered as Reported by: YUNIOR MAHER on 09/18/192200 Prednisone (Prednisone) 50 Mg Tab, 50 MG PO DAILY Prescribed by: Mary Borrego on 10/12/221540 Past Wydxfgb-Nzghyu-Nvmzzx Hx Patient Social History Tobacco Use?: No Substance use?: No Alcohol Use?: No Immunizations Up To Date Tetanus Booster (TDap): Unknown PED Vaccines UTD: Yes 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[employer] Past Medical History Surgery/Hospitalization HX: COPD, ASTHMA, DIALYSIS, GALLBLADDER Surgeries: Yes (D&C X'S 3) Respiratory: Yes (MILD SLEEP APNEA-CPAP) Asthma, Pneumonia, Chronic Bronchitis, Sleep Apnea Currently Using CPAP: No Currently Using BIPAP: No Cardiac: Yes ("HEART FAILURE") Hypertension Neurological: No Reproductive Disorders: Yes (FIBROID TUMORS) 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 Sexually Transmitted Disease: No HIV/AIDS: No Gastrointestinal: No ("I TAKE MEDICINE FOR LIVER DISEASE" UNABLE TO CONFIRM EXACTLY WHAT IS WRONG) Musculoskeletal: No Endocrine: Yes (ORAL MEDS DURING DAY AND LANTUS AT NIGHT) HEENT: No Loss of Vision: Bilateral Hearing Impairment: Denies Cancer: Yes Skin Psychosocial: No Integumentary: No Blood Disorders: No Adverse Reaction/Blood Tranf: No (HAS HAD BLOOD WITH NO PROBLEM) Physical Exam Vital Signs - First Documented 10/17/22 17:23 Temp 36.1 Pulse 74 Resp 12 B/P (MAP) 182/84 (116) Pulse Ox 96 O2 Delivery Room Air Capillary Refill : Less Than 3 Seconds Height: 5'5.00" Weight: 270lbs. 0.0oz. 122.107975qf; 41.00 BMI Method: Progress/Results/Core Measures Suspected Sepsis SIRS Temperature: Pulse: 74 Respiratory Rate: 12 Blood Pressure 182 /84 Mean: 116 Results/Orders Lab Results Laboratory Tests Test 10/17/22 18:05 Range/Units Influenza Type A (RT-PCR) Not Detected Not Detecte Influenza Type B (RT-PCR) Not Detected Not Detecte SARS-CoV-2 RNA (RT-PCR) Not Detected Not Detecte My Orders Orders - MARY BORREGO APRN Chest 1 View, Ap/Pa Only (10/17/22 17:46) Albuterol/Ipra Inhalation Soln (Duoneb I (10/17/22 18:00) Svn Small Volume Nebulizer (10/17/22 17:46) Covid 19 Inhouse Test (10/17/22 18:00) Influenza A And B By Pcr (10/17/22 18:00) Medications Given in ED Current Medications Medications Dose Ordered Sig/Maximino Route Start Time Stop Time Status Last Admin Dose Admin Albuterol/ Ipratropium 3 ml ONCE ONCE INH 10/17/22 18:00 10/17/22 18:01 DC 10/17/22 18:35 3 ML Vital Signs/I&O 10/17/22 17:23 Temp 36.1 Pulse 74 Resp 12 B/P (MAP) 182/84 (116) Pulse Ox 96 O2 Delivery Room Air Capillary Refill : Less Than 3 Seconds Blood Pressure Mean: 116 Departure Impression Primary Impression: Chronic bronchitis Disposition: 01 HOME, SELF-CARE Condition: Stable Departure-Patient Inst. Decision time for Depature: 19:07 Referrals: FELIBERTO CHAMORRO DO (PCP/Family) Primary Care Physician Patient Instructions: Chronic Bronchitis (DC) Add. Discharge Instructions: Use breathing treatments up to 4 times a day as needed. Complete your antibiotic and steroid. Follow-up with your primary care provider. Return for worsening shortness of breath, chest pain, high fevers, or any other new, concerning, or worsening symptoms. All discharge instructions reviewed with patient and/or family. Voiced understanding. Scripts Loratadine/Pseudoephedrine (Claritin-D 24 Hour Tablet) 10 Mg-240 Mg Tab.er.24h 1 EACH PO DAILY, #30 TAB 0 Refills Prov: MARY BORREGO APRN 10/17/22 Ipratropium/Albuterol Sulfate (Iprat-Albut 0.5-3(2.5) mg/3 ml) 0.5 Mg-3 Mg (2.5 Mg Base)/3 Ml Ampul.neb 3 ML IH Q6H PRN for SHORTNESS OF BREATH, #60 EACH 0 Refills Prov: MARY BORREGO APRN 10/17/22 MARY BORREGO APRN Oct 17, 2022 19:11
== END 2022-10-17 19:32 | disposition home or self-care (01) ==
LOC: EDUNIT# 16:32 → ER 16:35
DX: J42 Unspecified chronic bronchitis (principal); Z20.822 Contact with and (suspected) exposure to COVID-19
CPT/HCPCS: 71045; 87636

== ENCOUNTER 2022-12-05 12:50 | Emergency (ER) | payer MEDICARE ==
[~2022-12-05] VITALS: Ht 157 cm; Wt 108.8 kg
[~2022-12-05 12:50] MED LIST changes: +IPRA3AMP31 IH; +LORA-877 PO
--- NOTE | 2022-12-05 13:02 | ED Back Pain ---
General Chief Complaint: Lower Extremity Stated Complaint: BACK PAIN|COVID+ Nursing Triage Note: Patient to ER via [facility] w c/o left leg weakness and left side lower back pain. Pain starts in the left hip and radiates down the left leg. Patient states she tested positive for COVID 2 days ago. Pain in leg started 3 days ago. dialysis patient on eliquis. Source of Information: Patient, EMS Exam Limitations: No Limitations History of Present Illness Date Seen by Provider: Dec 05, 2022 Time Seen by Provider: 12:50 Initial Comments 72-year-old female presents to the emergency department today for mid lumbar pain. She arrives via ambulance and tells me that she has mid low back pain. This is a more longstanding issue for her off-and-on that has been worse over the last 3 days. She was concerned today because she felt like her left leg was heavy. She is still able to walk but felt like she was having to focus on moving her left leg more, describing a feeling of weakness in her left leg. She was diagnosed with COVID 2 days ago. She is chronically on dialysis and has not missed any dialysis sessions. She is on Eliquis. All other systems reviewed and negative except documented per HPI. Voice recognition software was used to help create this chart Allergies and Home Medications Allergies Coded Allergies: Sulfa (Sulfonamide Antibiotics) (Verified Allergy, Severe, BLOODY STOOLS, 10/20/19) ciprofloxacin (Verified Allergy, Severe, BLOODY STOOLS, 10/20/19) codeine (Verified Allergy, Severe, HALLUCINATIONS, 10/20/19) Patient Home Medication List Home Medication List Reviewed: Yes Albuterol Sulfate (Ventolin Hfa) 18 Gm Hfa.aer.ad, 1-2 PUFF IH PRN, (Reported) Entered as Reported by: TYRA CHING on 12/08/15 1130 Albuterol Sulfate (Albuterol Sulfate) 2.5 Mg/3 Ml Vial.neb, 2.5 MG INH Q4H PRN for WHEEZING Prescribed by: SHARON NICOLE on 10/20/19 2334 Albuterol/Ipratropium (Combivent Respimat Inhal [place]) 4 Gm Aero, 2 PUFF IH Q4H, (Reported) Entered as Reported by: TYRA CHING on 12/08/15 1130 Amoxicillin/Potassium Clav (Amox Tr-K Clv 250-125 mg Tab) 250 Mg-125 Mg Tablet, 1 EACH PO BID Prescribed by: Mary Bedoya on 10/12/22 154 Aspirin (Aspir 81) 81 Mg Tablet.dr, 81 MG PO DAILY, (Reported) Entered as Reported by: TYRA CHING on 12/08/15 112 Azithromycin (Azithromycin) 250 Mg Tablet, 250 MG PO DAILY Prescribed by: SHARON NICOLE on 10/20/19 2334 Doxycycline Hyclate (Doxycycline Hyclate) 100 Mg Tablet, 100 MG PO BID Prescribed by: Mary Bedoya on 10/12/22 154 Furosemide (Furosemide) 80 Mg Tablet, (Reported) Entered as Reported by: YUNIOR MAHER on 09/18/192200 Glipizide (Glipizide) 5 Mg Tablet, (Reported) Entered as Reported by: YUNIOR MAHER on 09/18/192200 Insulin Aspart (Novolog Flexpen) 300 Units/3 Ml Solution, 300 UNITS SQ AC, (Re ported) Entered as Reported by: TYRA CHING on 12/08/15 112 Insulin Detemir (Levemir Flextouch) 100 Unit/1 Ml Insuln.pen, (Reported) Entered as Reported by: YUNIOR MAHER on 09/18/192200 Insulin Determir (Levemir) 1,000 Units/10 Ml Soln, 74 UNITS SQ HS, (Reported) Entered as Reported by: TYRA CHING on 12/08/15 112 Ipratropium/Albuterol Sulfate (Iprat-Albut 0.5-3(2.5) mg/3 ml) 0.5 Mg-3 Mg (2.5 Mg Base)/3 Ml Ampul.neb, 3 ML IH Q6H PRN for SHORTNESS OF BREATH Prescribed by: Mary Bedoya on 10/17/22 191 Levothyroxine Sodium (Levothyroxine Sodium) 100 Mcg Tablet, 100 MCG PO DAILY, (Reported) Entered as Reported by: TYRA CHING on 12/08/15 112 Lisinopril (Lisinopril) 40 Mg Tablet, 80 MG PO BID, (Reported) Entered as Reported by: TYRA CHING on 12/08/15 1128 Loratadine/Pseudoephedrine (Claritin-D 24 Hour Tablet) 10 Mg-240 Mg Tab.er.24h, 1 EACH PO DAILY Prescribed by: Mary Bedoya on 10/17/22 191 Lovastatin (Lovastatin) 10 Mg Tablet, 10 MG PO HS, (Reported) Entered as Reported by: TYRA CHING on 12/08/15 112 Montelukast Sodium (Montelukast Sodium) 10 Mg Tablet, (Reported) Entered as Reported by: YUNIOR MAHER on 09/18/192200 Patiromer Calcium Sorbitex (Veltassa) 8.4 Gm Powd.pack, (Reported) Entered as Reported by: YUNIOR MAHER on 09/18/192200 Prednisone (Prednisone) 50 Mg Tab, 50 MG PO DAILY Prescribed by: Mary Bedoya on 10/12/22 1541 Review of Systems Constitutional: no symptoms reported Past Mnbgnbi-Ehybaf-Jdlnnr Hx Patient Social History Tobacco Use?: No Use of E-Cig and/or Vaping dev: No Substance use?: No Alcohol Use?: No Immunizations Up To Date Tetanus Booster (TDap): Unknown PED Vaccines UTD: Yes Past Medical History Surgery/Hospitalization HX: COPD, ASTHMA, DIALYSIS, GALLBLADDER Surgeries: Yes (D&C X'S 3) Respiratory: Yes (MILD SLEEP APNEA-CPAP) Asthma, Pneumonia, Chronic Bronchitis, Sleep Apnea Currently Using CPAP: No Currently Using BIPAP: No Cardiac: Yes ("HEART FAILURE") Hypertension Neurological: No Reproductive Disorders: Yes (FIBROID TUMORS) Female Reproductive Disorders: Denies [employer]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 Sexually Transmitted Disease: No HIV/AIDS: No Gastrointestinal: No ("I TAKE MEDICINE FOR LIVER DISEASE" UNABLE TO CONFIRM EXACTLY WHAT IS WRONG) Musculoskeletal: No Endocrine: Yes (ORAL MEDS DURING DAY AND LANTUS AT NIGHT) HEENT: No Loss of Vision: Bilateral Hearing Impairment: Denies Cancer: Yes Skin Psychosocial: No Integumentary: No Blood Disorders: No Adverse Reaction/Blood Tranf: No (HAS HAD BLOOD WITH NO PROBLEM) Family Medical History Reviewed Nursing Family Hx No Pertinent Family Hx Physical Exam Vital Signs Vital Signs - First Documented 12/05/22 12:55 Pulse 65 Resp 18 B/P (MAP) 193/82 (119) Pulse Ox 96 O2 Delivery Room Air Capillary Refill : Less Than 3 Seconds Height, Weight, BMI Height: 5'5.00" Weight: 270lbs. 0.0oz. 122.605752iw; 44.00 BMI Method: General Appearance: No Apparent Distress, WD/WN HEENT: Normal ENT Inspection, Pharynx Normal Neck: Full Range of Motion, Non Tender, Supple Cardiovascular: Regular Rate, Rhythm, No Murmur Respiratory: Chest Non Tender, Lungs Clear, Normal Breath Sounds, No Respiratory Distress Gastrointestinal: Non Tender, Soft Back: No CVA Tenderness, Other (Tenderness palpation midline lumbar spine near L4. No step-off deformity or skin changes.) Extremity: Normal Capillary Refill, Normal Range of Motion, Non Tender, No Calf Tenderness, Other (Normal strength bilateral lower extremities. 3+ pitting edema bilateral lower extremities. Neurovascular motor and sensory intact.) Neurologic/Psychiatric: Alert, Oriented x3 Skin: Normal Color, Warm/Dry Progress/Results/Core Measures Results/Orders My Orders Orders - KINGSTON HAYES DO Ct Lumbar Spine Wo (12/05/22 12:59) Vital Signs/I&O 12/05/22 12:55 Pulse 65 Resp 18 B/P (MAP) 193/82 (119) Pulse Ox 96 O2 Delivery Room Air Blood Pressure Mean: 119 Departure Communication (Admissions) Patient is hemodynamically stable. She has some subjective weakness of her left lower extremity with there is no appreciable weakness on exam today. She is neurovascular motor and sensory intact. She does have spinal stenosis on CT scan. With that we will go ahead and provide pain control and refer her onto her neurosurgeon. She has no loss of bowel or bladder control or saddle anesthesia. She is discharged home in stable condition with supportive care. Impression Primary Impression: Spinal stenosis at L4-L5 level Disposition: 01 HOME, SELF-CARE Condition: Stable Departure-Patient Inst. Referrals: FELIBERTO CHAMORRO DO (PCP/Family) Primary Care Physician NATALIA ENNIS DO Patient Instructions: Spinal Stenosis (DC) Add. Discharge Instructions: Pain medication as needed as prescribed. You will need to follow-up with a neurosurgeon by calling to schedule an appointment. 1 has been recommended to you that you are certainly welcome to research and choose whomever. Return to the emergency department immediately if you lose control of your bowels, bladder. All discharge instructions reviewed with patient and/or family. Voiced understanding. Scripts Hydrocodone/Acetaminophen (Hydrocodone-Acetamin 5-325 mg) 5 Mg-325 Mg Tablet 1 TAB PO Q4H PRN for PAIN-MODERATE (5-7) for 3 Days, #12 TAB Prov: KINGSTON HAYES DO 12/05/22 KINGSTON HAYES DO Dec 05, 2022 13:02
--- NOTE | 2022-12-05 13:40 | Diagnostic Imaging Report ---
PROCEDURE: CT lumbar spine without contrast. TECHNIQUE: Multiple contiguous axial images were obtained through the lumbar spine without the use of intravenous contrast. Sagittal and coronal reformations were then performed. Auto Exposure Controls were utilized during the CT exam to meet ALARA standards for radiation dose reduction. INDICATION: Lumbar pain with leg weakness. COMPARISON: None available. FINDINGS: There is degenerative straightening of the lumbar spine. No spondylolisthesis. No fracture or concerning focal osseous lesion. Multilevel degenerative disc disease is present. At L4-L5, there is likely moderate to severe spinal canal stenosis due to disc bulging and facet hypertrophy. No concerning abnormality of the retroperitoneum. IMPRESSION: 1. No acute osseous abnormality lumbar spine. 2. Moderate to severe spinal canal stenosis at L4-L5 due to degenerative disc disease and facet osteoarthritis. Dictated by: Dictated on workstation # [id number]
[2022-12-05] MEDS ORDERED: ACHD5005 PO (13:50)
[2022-12-05 14:20] VITALS: BP 194/95
== END 2022-12-05 14:20 | disposition home or self-care (01) ==
LOC: EDUNIT# 12:50 → ER 12:51
DX: M48.061 Spinal stenosis, lumbar region without neurogenic claudication (principal); G47.30 Sleep apnea, unspecified; Z86.16 Personal history of COVID-19; Z88.5 Allergy status to narcotic agent; Z79.01 Long term (current) use of anticoagulants; Z99.2 Dependence on renal dialysis; Z99.89 Dependence on other enabling machines and devices
CPT/HCPCS: 72131

== ENCOUNTER 2023-05-18 16:27 | Emergency (ER) | payer MEDICARE ==
[~2023-05-18] VITALS: Ht 157 cm; Wt 97.5 kg
[~2023-05-18 16:27] MED LIST changes: +ACHD5005 PO; -INSU100I29; +INSU100I30
--- NOTE | 2023-05-18 16:53 | ED Respiratory ---
General Chief Complaint: Respiratory Problems Stated Complaint: SOA - COUGH- CONGESTION Nursing Triage Note: PT TO RM 10 WITH C/O SOB, COUGH X3 DAYS Source: patient Exam Limitations: no limitations (MALLIKA DAVILA) History of Present Illness Date Seen by Provider: May 18, 2023 Time Seen by Provider: 16:47 Initial Comments 72 yo F with h/o COPD, asthma, PNA, CKD IV, and IDDM presents to the ED with c/o new onset fever, SOA, and cough that started 3 days ago. Pt states that cough was initially producing mucus but is now dry and SOA is present at rest and with exertion. Pt has been doing at home breathing treatments since onset with no relief, did not do breathing treatment today and instead came to ED. O2 sat after ambulation to ED room was 88% on RA. Pt was then placed on 2L O2 and O2 sats improved to 97% at rest. Pt does not wear O2 at home. Pt states that she had fever but says that temp never was above 100F at home. Pt denies recent sick contacts. Pt received dialysis earlier today. Denies nausea, vomiting, CP, diarrhea, and decreased appetite. Severity: mild Prior Episodes/Possible Cause: smoke exposure (, daughter, and son-in- law) Associated Symptoms: No chest pain/soreness; cough, fever/chills; No wheezing (MALLIKA DAVILA) Allergies and Home Medications Allergies Coded Allergies: Sulfa (Sulfonamide Antibiotics) (Verified Allergy, Severe, BLOODY STOOLS, 10/20/19) ciprofloxacin (Verified Allergy, Severe, BLOODY STOOLS, 10/20/19) codeine (Verified Allergy, Severe, HALLUCINATIONS, 10/20/19) Patient Home Medication List Home Medication List Reviewed: Yes (MALLIKA DAVILA) Albuterol Sulfate (Ventolin Hfa) 18 Gm Hfa.aer.ad, 1-2 PUFF IH PRN, (Reported) Entered as Reported by: TYRA CHING on 12/08/15 1130 Albuterol Sulfate (Albuterol Sulfate) 2.5 Mg/3 Ml Vial.neb, 2.5 MG INH Q4H PRN for WHEEZING Prescribed by: SHARON NICOLE on 10/20/19 2334 Albuterol/Ipratropium (Combivent Respimat Inhal [place]) 4 Gm Aero, 2 PUFF IH Q4H, (Reported) Entered as Reported by: TYRA CHING on 12/08/15 1130 Amoxicillin/Potassium Clav (Amox Tr-K Clv 250-125 mg Tab) 250 Mg-125 Mg Tablet, 1 EACH PO BID Prescribed by: Mary Bedoya on 10/12/22 1541 Aspirin (Aspir 81) 81 Mg Tablet.dr, 81 MG PO DAILY, (Reported) Entered as Reported by: TYRA CHING on 12/08/15 1128 Azithromycin (Azithromycin) 250 Mg Tablet, 250 MG PO DAILY Prescribed by: SHARON NICOLE on 10/20/19 2334 Doxycycline Hyclate (Doxycycline Hyclate) 100 Mg Tablet, 100 MG PO BID Prescribed by: Mary Bedoya on 10/12/22 1541 Furosemide (Furosemide) 80 Mg Tablet, (Reported) Entered as Reported by: YUNIOR MAHER on 09/18/192200 Glipizide (Glipizide) 5 Mg Tablet, (Reported) Entered as Reported by: YUNIOR MAHER on 09/18/192200 Hydrocodone/Acetaminophen (Hydrocodone-Acetamin 5-325 mg) 5 Mg-325 Mg Tablet, 1 TAB PO Q4H PRN for PAIN-MODERATE (5-7) Prescribed by: KINGSTON HAYES MD on 12/05/22 1350 Insulin Aspart (Novolog Flexpen) 300 Units/3 Ml Solution, 300 UNITS SQ AC, (Reported) Entered as Reported by: TYRA CHING on 12/08/15 1128 Insulin Detemir (Levemir Flextouch) 100 Unit/1 Ml Insuln.pen, (Reported) Entered as Reported by: YUNIOR MAHER on 09/18/192200 Insulin Determir (Levemir) 1,000 Units/10 Ml Soln, 74 UNITS SQ HS, (Reported) Entered as Reported by: TYRA CHING on 12/08/15 112 Ipratropium/Albuterol Sulfate (Iprat-Albut 0.5-3(2.5) mg/3 ml) 0.5 Mg-3 Mg (2.5 Mg Base)/3 Ml Ampul.neb, 3 ML IH Q6H PRN for SHORTNESS OF BREATH Prescribed by: Mary Bedoya on 10/17/221909 Levothyroxine Sodium (Levothyroxine Sodium) 100 Mcg Tablet, 100 MCG PO DAILY, (Reported) Entered as Reported by: TYRA CHING on 12/08/151127 Lisinopril (Lisinopril) 40 Mg Tablet, 80 MG PO BID, (Reported) Entered as Reported by: TYRA CHING on 12/08/151127 Loratadine/Pseudoephedrine (Claritin-D 24 Hour Tablet) 10 Mg-240 Mg Tab.er.24h, 1 EACH PO DAILY Prescribed by: Mary Bedoya on 10/17/221910 Lovastatin (Lovastatin) 10 Mg Tablet, 10 MG PO HS, (Reported) Entered as Reported by: TYRA CHING on 12/08/151127 Montelukast Sodium (Montelukast Sodium) 10 Mg Tablet, (Reported) Entered as Reported by: YUNIOR MAHER on 09/18/192200 Patiromer Calcium Sorbitex (Veltassa) 8.4 Gm Powd.pack, (Reported) Entered as Reported by: YUNIOR MAHER on 09/18/192200 Prednisone (Prednisone) 50 Mg Tab, 50 MG PO DAILY Prescribed by: Mary Bedoya on 10/12/22 154 Review of Systems Review of Systems Constitutional: No chills; fever (subjective) EENTM: no symptoms reported Respiratory: cough, dyspnea on exertion, short of breath; No wheezing Cardiovascular: no symptoms reported Gastrointestinal: no symptoms reported Genitourinary: no symptoms reported Musculoskeletal: no symptoms reported Skin: no symptoms reported Psychiatric/Neurological: No Symptoms Reported Hematologic/Lymphatic: No Symptoms Reported Immunological/Allergic: no symptoms reported (MALLIKA DAVILA) All Other Systems Reviewed Negative Unless Noted: Yes (MALLIKA DAVILA) Past Zyfowxw-Srboaj-Twatrs Hx Patient Social History Tobacco Use?: No Substance use?: No Alcohol Use?: No (MALLIKA DAVILA) Immunizations Up To Date Tetanus Booster (TDap): Unknown PED Vaccines UTD: Yes First/Initial COVID19 Vaccinat: unknown Second COVID19 Vaccination Jorge: unknown Third COVID19 Vaccination Date: unknown (MALLIKA DAVILA) Past Medical History Surgery/Hospitalization HX: COPD, ASTHMA, DIALYSIS, GALLBLADDER Surgeries: Yes (D&C X'S 3) Appendectomy, Gallbladder Respiratory: Yes (MILD SLEEP APNEA-CPAP) Asthma, Pneumonia, Chronic Bronchitis, Sleep Apnea, COPD Currently Using CPAP: No Currently Using BIPAP: No Cardiac: Yes Chronic Edema/Swelling, Hypertension Neurological: No Reproductive Disorders: Yes (FIBROID TUMORS) 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 Sexually Transmitted Disease: No HIV/AIDS: No Gastrointestinal: No ("I TAKE MEDICINE FOR LIVER DISEASE" UNABLE TO CONFIRM EXACTLY WHAT IS WRONG) Musculoskeletal: No Endocrine: Yes (ORAL MEDS DURING DAY AND LANTUS AT NIGHT) Diabetes, Non-Insulin dep HEENT: No Loss of Vision: Bilateral Hearing Impairment: Denies Cancer: Yes Skin Psychosocial: No Integumentary: No Blood Disorders: No Adverse Reaction/Blood Tranf: No (HAS HAD BLOOD WITH NO PROBLEM) (MALLIKA DAVILA) Family Medical History No Pertinent Family Hx (MALLIKA DAVILA) Physical Exam Vital Signs - First Documented 05/18/23 16:31 Temp 37.1 Pulse 85 Resp 22 B/P (MAP) 165/74 (104) Pulse Ox 93 O2 Delivery Nasal Cannula (TIARA MIGUEL MD) Capillary Refill : (MALLIKA DAVILA) Height: 5'5.00" Weight: 270lbs. 0.0oz. 122.022555wh; 39.00 BMI Method: General Appearance: WD/WN, no apparent distress HEENT: PERRL/EOMI Respiratory: lungs clear, normal breath sounds, no respiratory distress, no accessory muscle use Cardiovascular: regular rate, rhythm, systolic murmur, other (port R chest wall) Gastrointestinal: non tender, soft Extremities: no calf tenderness, pedal edema (b/l pitting edema-chronic), other (Dialysis fistula R arm ) Neurologic/Psychiatric: alert, normal mood/affect, oriented x 3 Skin: normal color, warm/dry Lymphatic: no adenopathy (MALLIKA DAVILA) Progress/Results/Core Measures Suspected Sepsis SIRS Temperature: Pulse: 85 Respiratory Rate: 22 Blood Pressure 165 /74 Mean: 104 (MALLIKA DAVILA) Results/Orders Lab Results Laboratory Tests Test 05/18/23 16:33 Range/Units Influenza Type A (RT-PCR) Not Detected Not Detecte Influenza Type B (RT-PCR) Not Detected Not Detecte SARS-CoV-2 RNA (RT-PCR) Not Detected Not Detecte (TIARA MIGUEL MD) My Orders Orders - TIARA MIGUEL MD Covid 19 Inhouse Test (05/18/23 17:03) Influenza A And B By Pcr (05/18/23 17:03) Chest 1 View, Ap/Pa Only (05/18/23 17:05) Ipratropium/Albuterol Inh Soln (Ipratrop (05/18/23 18:15) Svn Small Volume Nebulizer (05/18/23 18:01) (TIARA MIGUEL MD) Medications Given in ED Current Medications Medications Dose Ordered Sig/Maximino Route Start Time Stop Time Status Last Admin Dose Admin Albuterol/ Ipratropium 3 ml ONCE ONCE INH 05/18/23 18:15 05/18/23 18:16 05/18/23 18:05 3 ML (TIARA MIGUEL MD) Vital Signs/I&O 05/18/23 05/18/23 16:31 16:43 Temp 37.1 Pulse 85 Resp 22 B/P (MAP) 165/74 (104) Pulse Ox 93 O2 Delivery Nasal Cannula Room Air (TIARA MIGUEL MD) Vital Signs/I&O Capillary Refill : (MALLIKA DAVILA) Blood Pressure Mean: 104 Departure Impression Primary Impression: Viral syndrome Disposition: 01 HOME, SELF-CARE Condition: Improved Departure-Patient Inst. Decision time for Depature: 18:15 (TIARA MIGUEL MD) Referrals: FELIBERTO CHAMORRO DO (PCP/Family) Primary Care Physician Patient Instructions: Viral Syndrome (DC) Add. Discharge Instructions: Use your breathing treatments every 4-6 hours over the next couple of days. Continue your medications as prescribed. You can take hjpo-eak-bulneto Robitussin/Mucinex for your cough. This is safe with your kidney disease. Try and avoid any secondhand smoke exposure. If you develop a fever, worsening cough, chest pain or any other emergent, concerning symptoms please return to the emergency department for reevaluation Copy Copies To 1: FELIBERTO CHAMORRO TAYLOR May 18, 2023 16:53 TIARA MIGUEL MD May 18, 2023 18:17
--- NOTE | 2023-05-18 17:35 | Diagnostic Imaging Report ---
EXAMINATION: Chest 1 view HISTORY: Shortness of breath. COMPARISON: 10/17/2022. FINDINGS: Heart size and pulmonary vasculature are stable. There are patchy interstitial opacities within the ana-cc-rygwn lungs. Right-sided catheter is unchanged. There may be trace left pleural effusion. No pneumothorax. The osseous structures are intact. IMPRESSION: 1. Patchy interstitial opacities within the vhn-kt-okayh lungs with trace left pleural effusion. Findings are not significantly changed from 10/17/2022 and may relate to background chronic lung disease versus atelectasis, edema, or pneumonia. Dictated by: Dictated on workstation # [id number]
[2023-05-18] MEDS ORDERED: RT-Ipratropium/Albuterol NEB 3 ML VIAL INH ONE (18:15)
[2023-05-18 18:47] VITALS: BP 167/66
== END 2023-05-18 18:47 | disposition home or self-care (01) ==
LOC: EDUNIT# 16:27 → ER 16:29
DX: B34.9 Viral infection, unspecified (principal); R50.9 Fever, unspecified; R06.02 Shortness of breath; R05.9 Cough, unspecified; G47.30 Sleep apnea, unspecified; E11.22 Type 2 diabetes mellitus with diabetic chronic kidney disease; N18.9 Chronic kidney disease, unspecified; Z99.2 Dependence on renal dialysis; Z99.89 Dependence on other enabling machines and devices; Z20.822 Contact with and (suspected) exposure to COVID-19
CPT/HCPCS: 71045; 87636

== ENCOUNTER 2023-06-01 14:31 | Emergency (ER) | payer MEDICARE ==
--- NOTE | 2023-06-01 15:10 | ED Cough/URI ---
General Chief Complaint: Cough/Cold/Flu Symptoms Stated Complaint: CONGESTION | BILAT Source: patient Exam Limitations: no limitations (PASQUALE CARTWRIGHT) History of Present Illness Date Seen by Provider: Jun 01, 2023 Time Seen by Provider: 15:08 Initial Comments Patient is a 72-year-old female with a history of dialysis, diabetes who presents ED with cough. Patient states symptoms started around 10 days ago. Had some body aches and chills. Tested negative for COVID influenza. Patient states the coughing has gotten worse over the past few days. Some mild shortness of breath with a cough without any specific chest pain. History of pneumonia and states this feels very similar. Last week she was put on azithromycin with near improvement but then her coughing increased. She denies of any leg swelling. She does do dialysis every Tuesday and Tuesday. Did do dialysis today. She denies of any nausea, vomiting, diarrhea, headache, dizziness, fever, sore throat or ear pain. No recent travels. Vital signs stable. (PASQUALE CARTWRIGHT) Allergies and Home Medications Allergies Coded Allergies: Sulfa (Sulfonamide Antibiotics) (Verified Allergy, Severe, BLOODY STOOLS, 10/20/19) ciprofloxacin (Verified Allergy, Severe, BLOODY STOOLS, 10/20/19) codeine (Verified Allergy, Severe, HALLUCINATIONS, 10/20/19) Patient Home Medication List Home Medication List Reviewed: Yes (PASQUALE CARTWRIGHT) Albuterol Sulfate (Ventolin Hfa) 18 Gm Hfa.aer.ad, 1-2 PUFF IH PRN, (Reported) Entered as Reported by: TYRA CHING on 12/08/15 1130 Albuterol Sulfate (Albuterol Sulfate) 2.5 Mg/3 Ml Vial.neb, 2.5 MG INH Q4H PRN for WHEEZING Prescribed by: SHARON NICOLE on 10/20/19 2334 Albuterol/Ipratropium (Combivent Respimat Inhal Printer) 4 Gm Aero, 2 PUFF IH Q4H, (Reported) Entered as Reported by: TYRA CHING on 12/08/15 1130 Amoxicillin/Potassium Clav (Amox Tr-K Clv 250-125 mg Tab) 250 Mg-125 Mg Tablet, 1 EACH PO BID Prescribed by: Mary Bedoya on 10/12/22 1541 Aspirin (Aspir 81) 81 Mg Tablet.dr, 81 MG PO DAILY, (Reported) Entered as Reported by: TYRA CHING on 12/08/15 112 Azithromycin (Azithromycin) 250 Mg Tablet, 250 MG PO DAILY Prescribed by: SHARON NICOLE on 10/20/19 2334 Benzonatate (Tessalon Perles) 100 Mg Capsule, 200 MG PO TID Prescribed by: JESSICA RODRIGUEZ on 06/01/23 1610 Doxycycline Hyclate (Doxycycline Hyclate) 100 Mg Tablet, 100 MG PO BID Prescribed by: Mary Bedoya on 10/12/22 154 Doxycycline Monohydrate (Doxycycline Monohydrate) 100 Mg Tablet, 100 MG PO BID Prescribed by: JESSICA RODRIGUEZ on 06/01/23 1610 Furosemide (Furosemide) 80 Mg Tablet, (Reported) Entered as Reported by: YUNIOR MAHER on 09/18/192200 Glipizide (Glipizide) 5 Mg Tablet, (Reported) Entered as Reported by: YUNIOR MAHER on 09/18/192200 Hydrocodone/Acetaminophen (Hydrocodone-Acetamin 5-325 mg) 5 Mg-325 Mg Tablet, 1 TAB PO Q4H PRN for PAIN-MODERATE (5-7) Prescribed by: KINGSTON HAYES MD on 12/05/22 1350 Insulin Aspart (Novolog Flexpen) 300 Units/3 Ml Solution, 300 UNITS SQ AC, (Reported) Entered as Reported by: TYRA CHING on 12/08/15 112 Insulin Detemir (Levemir Flextouch) 100 Unit/1 Ml Insuln.pen, (Reported) Entered as Reported by: YUNIOR AMHER on 09/18/192200 Insulin Determir (Levemir) 1,000 Units/10 Ml Soln, 74 UNITS SQ HS, (Reported) Entered as Reported by: TYRA CHING on 12/08/151127 Ipratropium/Albuterol Sulfate (Iprat-Albut 0.5-3(2.5) mg/3 ml) 0.5 Mg-3 Mg (2.5 Mg Base)/3 Ml Ampul.neb, 3 ML IH Q6H PRN for SHORTNESS OF BREATH Prescribed by: Mary Bedoya on 10/17/221909 Levothyroxine Sodium (Levothyroxine Sodium) 100 Mcg Tablet, 100 MCG PO DAILY, (Reported) Entered as Reported by: TYRA CHING on 12/08/15 112 Lisinopril (Lisinopril) 40 Mg Tablet, 80 MG PO BID, (Reported) Entered as Reported by: TYRA CHING on 12/08/15 112 Loratadine/Pseudoephedrine (Claritin-D 24 Hour Tablet) 10 Mg-240 Mg Tab.er.24h, 1 EACH PO DAILY Prescribed by: Mary Bedoya on 10/17/221910 Lovastatin (Lovastatin) 10 Mg Tablet, 10 MG PO HS, (Reported) Entered as Reported by: TYRA CHING on 12/08/151127 Montelukast Sodium (Montelukast Sodium) 10 Mg Tablet, (Reported) Entered as Reported by: YUNIOR MAHER on 09/18/192200 Patiromer Calcium Sorbitex (Veltassa) 8.4 Gm Powd.pack, (Reported) Entered as Reported by: YUNIOR MAHER on 09/18/192200 Prednisone (Prednisone) 50 Mg Tab, 50 MG PO DAILY Prescribed by: Mary Bedoya on 10/12/22 154 Review of Systems Review of Systems Constitutional: No chills, No diaphoresis, No fever; malaise, weakness EENTM: No ear pain, No blurred vision, No vision loss, No mouth pain, No throat pain, No throat swelling Respiratory: cough; No dyspnea on exertion; short of breath Cardiovascular: No chest pain Gastrointestinal: No abdominal pain, No nausea, No vomiting Musculoskeletal: No back pain, No joint pain Skin: No change in color, No change in hair/nails (PASQUALE CARTWRIGHT) All Other Systems Reviewed Negative Unless Noted: Yes (PASQUALE CARTWRIGHT) Past Nwbvxch-Uijydz-Mpkebn Hx Patient Social History Tobacco Use?: No Use of E-Cig and/or Vaping dev: No Substance use?: No Alcohol Use?: No Pt feels they are or have been: No (PASQUALE CARTWRIGHT) Immunizations Up To Date Tetanus Booster (TDap): Unknown PED Vaccines UTD: Yes First/Initial COVID19 Vaccinat: unknown Second COVID19 Vaccination Jorge: unknown Third COVID19 Vaccination Date: unknown (PASQUALE CARTWRIGHT) Past Medical History Surgery/Hospitalization HX: COPD, ASTHMA, DIALYSIS, GALLBLADDER Surgeries: Yes (D&C X'S 3) Appendectomy, Gallbladder Respiratory: Yes (MILD SLEEP APNEA-CPAP) Asthma, Pneumonia, Chronic Bronchitis, Sleep Apnea, COPD Currently Using CPAP: No Currently Using BIPAP: No Cardiac: Yes Chronic Edema/Swelling, Hypertension Neurological: No Reproductive Disorders: Yes (FIBROID TUMORS) Female Reproductive Disorders: 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 Sexually Transmitted Disease: No HIV/AIDS: No Gastrointestinal: No ("I TAKE MEDICINE FOR LIVER DISEASE" UNABLE TO CONFIRM EXACTLY WHAT IS WRONG) Musculoskeletal: No Endocrine: Yes (ORAL MEDS DURING DAY AND LANTUS AT NIGHT) Diabetes, Non-Insulin dep HEENT: No Loss of Vision: Bilateral Hearing Impairment: Denies Cancer: Yes Skin Psychosocial: No Integumentary: No Blood Disorders: No Adverse Reaction/Blood Tranf: No (HAS HAD BLOOD WITH NO PROBLEM) (PASQUALE CARTWRIGHT) Family Medical History No Pertinent Family Hx (PASQUALE CARTWRIGHT) Physical Exam Vital Signs - First Documented 06/01/23 14:47 Temp 36.8 Pulse 85 Resp 20 B/P (MAP) 164/61 (95) Pulse Ox 94 O2 Delivery Room Air (NATALIA HOLDER MD) Capillary Refill : (PASQUALE CARTWRIGHT) Height: 5'5.00" Weight: 270lbs. 0.0oz. 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, no motor/sensory deficits, alert, normal mood/affect, oriented x 3 Skin: normal color, warm/dry (PASQUALE CARTWRIGHT) Progress/Results/Core Measures Suspected Sepsis SIRS Temperature: Pulse: Respiratory Rate: Laboratory Tests 06/01/23 15:22: White Blood Count 7.5 Blood Pressure / Mean: Laboratory Tests 06/01/23 15:22: Creatinine 1.93H, Platelet Count 149, Total Bilirubin 0.8 (PASQUALE CARTWRIGHT) Results/Orders Lab Results Laboratory Tests Test 06/01/23 15:22 Range/Units White Blood Count 7.5 4.3-11.0 10^3/uL Red Blood Count 3.89 3.80-5.11 10^6/uL Hemoglobin 12.0 11.5-16.0 g/dL Hematocrit 40 35-52 % Mean Corpuscular Volume 103 H 80-99 fL Mean Corpuscular Hemoglobin 31 25-34 pg Mean Corpuscular Hemoglobin Concent 30 L 32-36 g/dL Red Cell Distribution Width 15.9 H 10.0-14.5 % Platelet Count 149 130-400 10^3/uL Mean Platelet Volume 11.1 9.0-12.2 fL Immature Granulocyte % (Auto) 1 % Neutrophils (%) (Auto) 79 H 42-75 % Lymphocytes (%) (Auto) 12 12-44 % Monocytes (%) (Auto) 7 0-12 % Eosinophils (%) (Auto) 1 0-10 % Basophils (%) (Auto) 0 0-10 % Neutrophils # (Auto) 5.9 1.8-7.8 X 10^3 Lymphocytes # (Auto) 0.9 L 1.0-4.0 X 10^3 Monocytes # (Auto) 0.5 0.0-1.0 X 10^3 Eosinophils # (Auto) 0.1 0.0-0.3 10^3/uL Basophils # (Auto) 0.0 0.0-0.1 10^3/uL Immature Granulocyte # (Auto) 0.1 0.0-0.1 10^3/uL Sodium Level 139 135-145 MMOL/L Potassium Level 3.3 L 3.6-5.0 MMOL/L Chloride Level 100 98-107 MMOL/L Carbon Dioxide Level 27 21-32 MMOL/L Anion Gap 12 5-14 MMOL/L Blood Urea Nitrogen 15 7-18 MG/DL Creatinine 1.93 H 0.60-1.30 MG/DL Estimat Glomerular Filtration Rate 28 BUN/Creatinine Ratio 8 Glucose Level 199 H 70-105 MG/DL Calcium Level 8.6 8.5-10.1 MG/DL Corrected Calcium 9.2 8.5-10.1 MG/DL Total Bilirubin 0.8 0.1-1.0 MG/DL Aspartate Amino Transf (AST/SGOT) 20 5-34 U/L Alanine Aminotransferase (ALT/SGPT) 23 0-55 U/L Alkaline Phosphatase 134 40-136 U/L C-Reactive Protein High Sensitivity 1.41 H 0.00-0.50 MG/DL B-Type Natriuretic Peptide 377.7 H <100.0 PG/ML Total Protein 7.7 6.4-8.2 GM/DL Albumin 3.3 3.2-4.5 GM/DL (NATALIA HOLDER MD) Vital Signs/I&O 06/01/23 06/01/23 14:47 16:19 Temp 36.8 37.0 Pulse 85 76 Resp 20 18 B/P (MAP) 164/61 (95) 168/66 Pulse Ox 94 93 O2 Delivery Room Air Room Air (NATALIA HOLDER MD) Vital Signs/I&O Capillary Refill : (PASQUALE CARTWRIGHT) Departure Communication (PCP) Patient with a cough productive over the past 10 days. She did receive a Z-Coy last week with some improvement but then symptoms worsen over the past 2 days. No specific chest pain or shortness of breath currently denies history of CHF or coronary artery disease. She is on dialysis 3 times a week. Did receive dialysis today. She denies feeling like she is retaining fluid. She denies any fever. She did have an outpatient negative COVID influenza when she did present with the symptoms. On arrival vital signs were stable. She had a negative COVID influenza May 18. CBC, CMP CRP was ordered as well as BNP. Chest x- ray was obtained. Chest x-ray did not show any evidence of consolidation or pneumothorax. Mild cardiomegaly without evidence of failure. No interstitial markings. Clinically does not appear to be CHF related. Her CBC was grossly unremarkable. Patient creatinine 1.93, GFR 28. CRP was 1.41. BNP 377. Patient blood sugar was 199. She is a diabetic. Potassium 3.3. She does have oral supplements at home to take that she will take. Clinically does not appear to be secondary to fluid overload. She does not appear septic. Inflammatory markers not severely elevated. Suspect that this is more bronchitis. No history of COPD. She is not requiring oxygen. 97% on room air. Due to the continuous cough will discharge with doxycycline. She is requesting something for the cough and will discharge with Tessalon Perles. If symptoms continue to worsen she needs return back to ED. I do think with her history of kidney disease that cardiac outpatient follow-up would be warranted if symptoms do continue to rule out underlying CHF. Clinically does not appear to be CHF related. She appears nontoxic. Will discharge with strict return precautions. Follow-up with your PCP in 2 days for reevaluation. (PASQUALE CARTWRIGHT) Impression Primary Impression: Bronchitis Disposition: 01 HOME, SELF-CARE Condition: Stable Departure-Patient Inst. Decision time for Depature: 16:07 (PASQUALE CARTWRIGHT) Referrals: FELIBERTO CHAMORRO DO (PCP/Family) Primary Care Physician Patient Instructions: Acute Bronchitis, Adult (DC) Add. Discharge Instructions: Recommend follow-up your PCP in 2 to 3 days for reevaluation. Tessalon for cough. Take antibiotics as prescribed. If any worsening symptoms return back to ED. All discharge instructions reviewed with patient and/or family. Voiced und erstanding. Scripts Benzonatate (TESSALON PERLES) 100 Mg Capsule 200 MG PO TID for Cough, #20 CAP Prov: PASQUALE CARTWRIGHT 06/01/23 Doxycycline Monohydrate (Doxycycline Monohydrate) 100 Mg Tablet 100 MG PO BID for 7 Days, #14 TAB Prov: PASQUALE CARTWRIGHT 06/01/23 ATTENDING PHYSICIAN NOTE: I was physically present as attending physician in the emergency department during the care of this patient, but I was not directly involved in the decision making or delivery of care for this patient. (NATALIA HOLDER MD) PASQUALE CARTWRIGHT Jun 01, 2023 15:10 NATALIA HOLDER MD Jun 02, 2023 13:04
--- NOTE | 2023-06-01 15:23 | Diagnostic Imaging Report ---
INDICATION: Congestion. COMPARISON: 05/18/2023. FINDINGS: Single frontal radiographic view of the chest was obtained and demonstrates mild cardiomegaly. Pulmonary vasculature is within normal limits. Right internal jugular dual-lumen central venous catheter is seen with tip projecting over the right atrium. Lungs remain clear. There is no focal consolidation, large effusion, nor pneumothorax. Osseous structures show no acute abnormalities. IMPRESSION: 1. Mild cardiomegaly, but no evidence of failure or focal infiltrate. Dictated by: Dictated on workstation # [id number]
[2023-06-01 15:40] LABS: BASOPHILS % (AUTO) 0 % (0-10); EOSINOPHILS # (AUTO) 0.1 10^3/uL (0.0-0.3); EOSINOPHILS % (AUTO) 1 % (0-10); HEMATOCRIT 40 % (35-52); LYMPHOCYTES # (AUTO) 0.9 X 10^3 (1.0-4.0); LYMPHOCYTES % (AUTO) 12 % (12-44); MEAN CORPUSCULAR HEMOGLOBIN 31 pg (25-34); MEAN CORPUSCULAR HGB CONC 30 g/dL (32-36); MEAN CORPUSCULAR VOLUME 103 fL (80-99); MEAN PLATELET VOLUME 11.1 fL (9.0-12.2); MONOCYTES # (AUTO) 0.5 X 10^3 (0.0-1.0); MONOCYTES % (AUTO) 7 % (0-12); NEUTROPHILS # (AUTO) 5.9 X 10^3 (1.8-7.8); NEUTROPHILS % (AUTO) 79 % (42-75); PLATELET COUNT 149 10^3/uL (130-400); WHITE BLOOD COUNT 7.5 10^3/uL (4.3-11.0)
[2023-06-01 15:44] LABS: ALBUMIN 3.3 GM/DL (3.2-4.5); POTASSIUM 3.3 MMOL/L (3.6-5.0)
[2023-06-01 15:45] LABS: CALCIUM 8.6 MG/DL (8.5-10.1)
[2023-06-01 15:47] LABS: TOTAL PROTEIN 7.7 GM/DL (6.4-8.2)
[2023-06-01 15:48] LABS: BILIRUBIN,TOTAL 0.8 MG/DL (0.1-1.0)
[2023-06-01 15:50] LABS: CREATININE SERUM 1.93 MG/DL (0.60-1.30)
[2023-06-01] MEDS ORDERED: BENZ100C18 PO (16:10)
[2023-06-01] MEDS ORDERED: DOXY100T31 PO (16:10)
[2023-06-01 16:19] VITALS: BP 168/66
== END 2023-06-01 16:20 | disposition home or self-care (01) ==
LOC: EDUNIT# 14:31 → ER 14:33
DX: J40 Bronchitis, not specified as acute or chronic (principal); I13.2 Hypertensive heart and chronic kidney disease with heart failure and with stage 5 chronic kidney disease, or end stage renal disease; E11.22 Type 2 diabetes mellitus with diabetic chronic kidney disease; I50.9 Heart failure, unspecified; N18.6 End stage renal disease; Z99.2 Dependence on renal dialysis; Z88.2 Allergy status to sulfonamides
CPT/HCPCS: 36415; 71045; 80053; 83880; 85025; 86141

== ENCOUNTER 2023-06-20 15:02 | Emergency (ER) | payer MEDICARE ==
[~2023-06-20] VITALS: Ht 158 cm; Wt 100.0 kg
[~2023-06-20 15:02] MED LIST changes: +BENZ100C18 PO; +DOXY100T31 PO
--- NOTE | 2023-06-20 15:32 | ED General ---
General Chief Complaint: Dizziness/Syncope Stated Complaint: DIZZY | NAUSEA | VOMITING Nursing Triage Note: PT TO [facility] WITH CC OF DIZZY NV AFTER DIALYSIS, PT FELT LIGHTHEADED LAST TUE AND TUE AFTER DIALYSIS. STATES GAINED 8 LBS SINCE TUESDAY BECAUSE EATING TOO MUCH ICE CREAM Source of Information: Patient Exam Limitations: No Limitations (OLIVA MORE) History of Present Illness Date Seen by Provider: Jun 20, 2023 Time Seen by Provider: 15:08 Initial Comments Patient presents today with a almost week long history of lightheadedness, sara sea, and vomiting after receiving dialysis treatments. She states that these symptoms have sense ceased and she feels like she should have just waited rather than coming to the ED. She has had episodes like this before in the past. Timing/Duration: Resolved Prior to Arrival Severity: Mild Modifying Factors: improves with Medication Associated Systoms: Nausea/Vomiting (OLIVA MORE) Allergies and Home Medications Allergies Coded Allergies: Sulfa (Sulfonamide Antibiotics) (Verified Allergy, Severe, BLOODY STOOLS, 10/20/19) ciprofloxacin (Verified Allergy, Severe, BLOODY STOOLS, 10/20/19) codeine (Verified Allergy, Severe, HALLUCINATIONS, 10/20/19) Patient Home Medication List Home Medication List Reviewed: Yes (OLIVA MORE) Home Medication List Reviewed: Yes (ASH MONTAGUE DO) Albuterol Sulfate (Ventolin Hfa) 18 Gm Hfa.aer.ad, 1-2 PUFF IH PRN, (Reported) Entered as Reported by: TYRA CHING on 12/08/15 1130 Albuterol Sulfate (Albuterol Sulfate) 2.5 Mg/3 Ml Vial.neb, 2.5 MG INH Q4H PRN for WHEEZING Prescribed by: SHARON NICOLE on 10/20/19 2334 Albuterol/Ipratropium (Combivent Respimat Inhal Tofte) 4 Gm Aero, 2 PUFF IH Q4H, (Reported) Entered as Reported by: TYRA CHING on 12/08/15 1130 Amoxicillin/Potassium Clav (Amox Tr-K Clv 250-125 mg Tab) 250 Mg-125 Mg Tablet, 1 EACH PO BID Prescribed by: Mary Bedoya on 10/12/22 1541 Aspirin (Aspir 81) 81 Mg Tablet.dr, 81 MG PO DAILY, (Reported) Entered as Reported by: TYRA CHING on 12/08/15 1128 Azithromycin (Azithromycin) 250 Mg Tablet, 250 MG PO DAILY Prescribed by: SHARON NICOLE on 10/20/19 2334 Benzonatate (Tessalon Perles) 100 Mg Capsule, 200 MG PO TID Prescribed by: JESSICA RODRIGUEZ on 06/01/23 1610 Doxycycline Hyclate (Doxycycline Hyclate) 100 Mg Tablet, 100 MG PO BID Prescribed by: Mary Bedoya on 10/12/22 1541 Doxycycline Monohydrate (Doxycycline Monohydrate) 100 Mg Tablet, 100 MG PO BID Prescribed by: JESSICA RODRIGUEZ on 06/01/23 1610 Furosemide (Furosemide) 80 Mg Tablet, (Reported) Entered as Reported by: YUNIOR MAHER on 09/18/192200 Glipizide (Glipizide) 5 Mg Tablet, (Reported) Entered as Reported by: YUNIOR MAHER on 09/18/192200 Hydrocodone/Acetaminophen (Hydrocodone-Acetamin 5-325 mg) 5 Mg-325 Mg Tablet, 1 TAB PO Q4H PRN for PAIN-MODERATE (5-7) Prescribed by: KINGSTON HAYES MD on 12/05/22 1350 Insulin Aspart (Novolog Flexpen) 300 Units/3 Ml Solution, 300 UNITS SQ AC, (Reported) Entered as Reported by: TYRA CHING on 12/08/15 112 Insulin Detemir (Levemir Flextouch) 100 Unit/1 Ml Insuln.pen, (Reported) Entered as Reported by: YUNIOR MAHER on 09/18/192200 Insulin Determir (Levemir) 1,000 Units/10 Ml Soln, 74 UNITS SQ HS, (Reported) Entered as Reported by: TYRA CHING on 12/08/15 112 Ipratropium/Albuterol Sulfate (Iprat-Albut 0.5-3(2.5) mg/3 ml) 0.5 Mg-3 Mg (2.5 Mg Base)/3 Ml Ampul.neb, 3 ML IH Q6H PRN for SHORTNESS OF BREATH Prescribed by: Mary Bedoya on 10/17/221909 Levothyroxine Sodium (Levothyroxine Sodium) 100 Mcg Tablet, 100 MCG PO DAILY, (Reported) Entered as Reported by: TYRA CHING on 12/08/151127 Lisinopril (Lisinopril) 40 Mg Tablet, 80 MG PO BID, (Reported) Entered as Reported by: TYRA CHING on 12/08/151127 Loratadine/Pseudoephedrine (Claritin-D 24 Hour Tablet) 10 Mg-240 Mg Tab.er.24h, 1 EACH PO DAILY Prescribed by: Mary Bedoya on 10/17/221910 Lovastatin (Lovastatin) 10 Mg Tablet, 10 MG PO HS, (Reported) Entered as Reported by: TYRA CHING on 12/08/151127 Montelukast Sodium (Montelukast Sodium) 10 Mg Tablet, (Reported) Entered as Reported by: YUNIOR MAHER on 09/18/192200 Patiromer Calcium Sorbitex (Veltassa) 8.4 Gm Powd.pack, (Reported) Entered as Reported by: YUNIOR MAHER on 09/18/192200 Prednisone (Prednisone) 50 Mg Tab, 50 MG PO DAILY Prescribed by: Mary Bedoya on 10/12/22 154 Review of Systems Review of Systems Constitutional: dizziness, weight gain EENTM: no symptoms reported Respiratory: no symptoms reported Cardiovascular: no symptoms reported Gastrointestinal: nausea, vomiting Genitourinary: no symptoms reported Musculoskeletal: no symptoms reported Skin: no symptoms reported Psychiatric/Neurological: No Symptoms Reported (OLIVA MORE) All Other Systems Reviewed Negative Unless Noted: Yes (OLIVA MORE) Past Qggknom-Gftyrv-Onmtpt Hx Patient Social History Tobacco Use?: No Substance use?: No Alcohol Use?: No (OLIVA MORE) Immunizations Up To Date Tetanus Booster (TDap): Unknown PED Vaccines UTD: Yes First/Initial COVID19 Vaccinat: unknown Second COVID19 Vaccination Jorge: unknown Third COVID19 Vaccination Date: unknown (OLIVA MORE) Past Medical History Surgery/Hospitalization HX: COPD, ASTHMA, DIALYSIS, GALLBLADDER Surgeries: Yes (D&C X'S 3) Appendectomy, Gallbladder Respiratory: Yes (MILD SLEEP APNEA-CPAP) Asthma, Pneumonia, Chronic Bronchitis, Sleep Apnea, COPD Currently Using CPAP: No Currently Using BIPAP: No Cardiac: Yes Chronic Edema/Swelling, Hypertension Neurological: No Reproductive Disorders: Yes (FIBROID TUMORS) 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 Sexually Transmitted Disease: No HIV/AIDS: No Gastrointestinal: No ("I TAKE MEDICINE FOR LIVER DISEASE" UNABLE TO CONFIRM EXACTLY WHAT IS WRONG) Musculoskeletal: No Endocrine: Yes (ORAL MEDS DURING DAY AND LANTUS AT NIGHT) Diabetes, Non-Insulin dep HEENT: No Loss of Vision: Bilateral Hearing Impairment: Denies Cancer: Yes Skin Psychosocial: No Integumentary: No Blood Disorders: No Adverse Reaction/Blood Tranf: No (HAS HAD BLOOD WITH NO PROBLEM) (OLIVA MORE) Family Medical History No Pertinent Family Hx (OLIVA MORE) Physical Exam Vital Signs Vital Signs - First Documented 06/20/23 15:04 Temp 36.5 Pulse 67 Resp 22 B/P (MAP) 116/63 (80) Pulse Ox 98 O2 Delivery Room Air (DETAR,ASH W DO) Vital Signs Capillary Refill : Less Than 3 Seconds (OLIVA MORE) Height, Weight, BMI Height: 5'5.00" Weight: 270lbs. 0.0oz. 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 She had earlier symptoms of nausea, vomiting and lightheadedness before departing with EMS. She is currently doing dialysis treatments and says that she is frequent about going and has only missed 2 appointments since September of this year. She states that she should have just waited it out at home because she feels much better now in the ED. Plan is to monitor her and watch and wait at this point to see if any old or new symptoms arise. (OLIVA MORE) Progress Note : Progress Note Patietn feeling back to baseline, admits she feels l=similar after each dialysis appointment, advised to discus this with medical research scientist or dialysis nurse t see if having a drink or a snack available would help these symptoms. (ASH MONTAGUE DO) Departure Impression Primary Impression: Dizziness Disposition: 01 HOME, SELF-CARE Condition: Improved Departure-Patient Inst. Referrals: FELIBERTO CHAMORRO DO (PCP/Family) Primary Care Physician Patient Instructions: Dizziness, Adult ED OLIVA MORE Jun 20, 2023 15:32 ASH MONTAGUE DO Jun 20, 2023 15:43
[2023-06-20 16:46] VITALS: BP 139/71
== END 2023-06-20 16:46 | disposition home or self-care (01) ==
LOC: EDUNIT# 15:02 → ER 15:03
DX: R42 Dizziness and giddiness (principal); G47.30 Sleep apnea, unspecified; Z99.89 Dependence on other enabling machines and devices